=== PATIENT | male | born 1960 | race Caucasian/White ===

== ENCOUNTER 2019-05-23 20:46 | Inpatient (IN) | payer OTHER ==
[2019-05-23] MEDS ORDERED: NS 0.9% 1000 ML** 2,000 ML IV ONE (21:02)
[2019-05-23] MEDS ORDERED: Pantoprazole IV* 40 MG IV ONE (21:02)
[2019-05-23] MEDS ORDERED: Pantoprazole* 80 mg IN NS 80 MG/250 ML BAG IV ONE (21:02)
--- NOTE | 2019-05-23 21:04 | ED ---
Complex/Multi-Sys Presentation - HPI Summary HPI Summary: Patient is a 59 y/o M presenting to the ED via EMS for a chief complaint of nausea and vomiting that began on 04/21/19 around 12:00. The vomiting is described as coffee ground emesis and black, but the patient states the vomiting was not initially this color. Patient also admits abdominal bloating and SOB when coughing. Patient denies chest pain or fever. Patient rates his current pain as 7/10 in severity. Patient lives with friends who serve as his caregivers. Patient's friends move the patient from where he sleeps to the couch using a wheelchair where he sits and watches TV during the day. Patient takes blood thinners, but denies taking pain medications. Patient has a PMHx of appendectomy, a PMHx of DM, but denies a PMHx of ulcers. Patient denies tobacco use, but admits marijuana use. Patient drinks alcohol daily. Patient sees Dr. Lowery for neuropathy and ataxia. - History Of Current Complaint Hx Obtained From: Patient Onset/Duration: Sudden Onset, Still Present Timing: Intermittent, Lasting: Severity Currently: Moderate Severity Initially: Moderate Associated Signs And Symptoms: Positive: SOB, Cough, Nausea, Vomiting - Coffee ground and black, Other - Positive abdominal bloating. Negative: Chest Pain, Fever - Allergies/Home Medications Allergies/Adverse Reactions: Allergies Allergy/AdvReac Type Severity Reaction Status Date / Time No Known Allergies Allergy Verified 05/23/19 20:54 Home Medications: Home Medications Aspirin EC TAB* [Ecotrin EC Low Dose 81 MG*] 81 mg PO DAILY 05/23/19 [History Confirmed 05/23/19] Atenolol TAB* [Tenormin TAB* 25 MG] 25 mg PO DAILY 05/23/19 [History Confirmed 05/23/19] Escitalopram * [Lexapro 10 mg (NF)] 10 mg PO DAILY 05/23/19 [History Confirmed 05/23/19] Folic Acid TAB* [Folvite TAB*] 1 mg PO DAILY 05/23/19 [History Confirmed ] Lisinopril TAB* [Prinivil TAB*] 10 mg PO DAILY 05/23/19 [History Confirmed 05/23] Multivitamins/Minerals TAB* [Theragran/minerals TAB*] 1 tab PO DAILY 05/23/19 [ History Confirmed 05/23/19] Rosuvastatin (NF) [Crestor (NF)] 10 mg PO DAILY 05/23/19 [History Confirmed 05/31] Thiamine TAB* [Vitamin B-1 TAB*] 250 mg PO DAILY 05/23/19 [History Confirmed 05/31] Ubidecarenone [Co Q-10] 200 mg PO DAILY 05/23/19 [History Confirmed 05/23/19] clonazePAM TAB(*) [KlonoPIN TAB(*)] 0.5 mg PO TID PRN 05/23/19 [History Confirmed 05/23/19] PMH/Surg Hx/FS Hx/Imm Hx Previously Healthy: Yes Endocrine/Hematology History: Reports: Hx Diabetes Cardiovascular History: Reports: Hx Angina, Hx Hypercholesterolemia, Hx Hypertension Denies: Hx Coronary Artery Disease, Hx Pacemaker/ICD, Hx Valvular Heart Disease Respiratory History: Denies: Hx Asthma, Hx Chronic Obstructive Pulmonary Disease (COPD) History: Denies: Hx Renal Disease Sensory History: Reports: Hx Cataracts - BILATERAL, Hx Contacts or Glasses - GLASSES, Hx Hearing Aid Denies: Hx Legally Blind, Hx Deafness Opthamlomology History: Reports: Hx Cataracts - BILATERAL, Hx Contacts or Glasses - GLASSES Denies: Hx Legally Blind EENT History: Denies: Hx Deafness Psychiatric History: Reports: Hx Anxiety - ON DAILY MEDS, Hx Depression, Hx Panic Disorder - PANIC ATTACKS - Surgical History Surgical History: Yes Surgery Procedure, Year, and Place: 2 HEART STENTS 2008-[facility]. APPENDIX 1976. BILATERAL CATARACTS 05/2016 Hx Anesthesia Reactions: No Infectious Disease History: No Infectious Disease History: Denies: Hx Clostridium Difficile, Hx Hepatitis, Hx Human Immunodeficiency Virus (HIV), Hx of Known/Suspected MRSA, Hx Shingles, Hx Tuberculosis, Hx Known/ Suspected VRE, Hx Known/Suspected VRSA, History Other Infectious Disease, Traveled Outside the [place] in Last 30 Days - Family History Known Family History: Negative: Diabetes - Social History Occupation: Retired Lives: Dormitory/Roommates Alcohol Use: Daily Alcohol Amount: "Not this week" but usually daily Hx Substance Use: Yes Substance Use Type: Reports: Marijuana Substance Use Comment - Amount & Last Used: WILL TRY & NOT USE PREOP FEW DAYS Hx Tobacco Use: No Smoking Status (MU): Never Smoked Tobacco Have You Smoked in the Last Year: No Review of Systems Negative: Fever Negative: Chest Pain Positive: Shortness Of Breath, Cough Positive: Vomiting - Coffee ground and black, Nausea All Other Systems Reviewed And Are Negative: Yes Physical Exam - Summary Physical Exam Summary: Appearance: Well-appearing, lying in bed comfortably. Morbidly obese man who appears debilitated, no apparent distress Skin: Warm, dry, no obvious rash Eyes: sclera anicteric, no conjunctival pallor ENT: mucous membranes moist, pharynx appears normal Neck: Supple, nontender Respiratory: Clear to auscultation, no signs of respiratory distress Cardiovascular: Normal S1, S2. No murmurs. Normal distal pulses in tibial and radial bilaterally. Mild tachycardia with normal BP. Abdomen: Soft, normal active bowel sounds present. Mild upper abdominal tenderness without peritoneal signs. Musculoskeletal: Normal, Strength/ROM Intact Neurological: A&Ox3, awake and alert, mentation is normal, speech is fluent and appropriate Psychiatric: affect is normal, does not appear anxious or depressed Triage Information Reviewed: Yes Vital Signs On Initial Exam: Initial Vitals Temp Pulse Resp BP Pulse Ox 98.9 F 126 18 128/93 99 05/23/19 20:48 05/23/19 20:48 05/23/19 20:48 05/23/19 20:48 05/23/19 20:48 Vital Signs Reviewed: Yes Procedures - Sedation Patient Received Moderate/Deep Sedation with Procedure: No Diagnostics - Vital Signs Vital Signs Temp Pulse Resp BP Pulse Ox 05/23/19 20:48 98.9 F 126 18 128/93 99 - Laboratory Result Diagrams: 05/25/19 08:15 05/26/19 08:42 Lab Statement: Any lab studies that have been ordered have been reviewed, and results considered in the medical decision making process. - EKG 20:48 Cardiac Rate: Tachycardia - 122 BPM EKG Rhythm: Sinus Tachycardia ST Segment: Normal Ectopy: None Summary of EKG Findings: EKG at 20:48 shows 122 BPM with sinus tachycardia, no STEMI. P waves, QRS complex, and T waves are within normal limits, T waves and intervals are normal, no ischemic changes. This is a normal EKG. Reviewed and interpreted by ED physician. Complex Multi-Symp Course/Dx Course Of Treatment: Patient is a 59 y/o M presenting to the ED via EMS for a chief complaint of nausea and vomiting that began on 04/21/19 around 12:00. The vomiting is described as coffee ground emesis and black, but the patient states the vomiting was not initially this color. Patient also admits abdominal bloating and SOB when coughing. Patient denies chest pain or fever. Patient rates his current pain as 7/10 in severity. Patient lives with friends who serve as his caregivers. Patient's friends move the patient from where he sleeps to the couch using a wheelchair where he sits and watches TV during the day. Patient takes blood thinners, but denies taking pain medications. Patient has a PMHx of appendectomy, a PMHx of DM, but denies a PMHx of ulcers. Patient denies tobacco use, but admits marijuana use. Patient drinks alcohol daily. Patient sees Dr. Lowery for neuropathy and ataxia. On exam, morbidly obese man who appears debilitated, no apparent distress, mild tachycardia with normal BP. Mild upper abdominal tenderness without peritoneal signs. In the ED course, patient was given pantoprazole 80 mg IV, pantoprazole 40 mg IV, and fluids. EKG at 20:48 shows 122 BPM with sinus tachycardia, no STEMI. P waves, QRS complex, and T waves are within normal limits, T waves and intervals are normal , no ischemic changes. This is a normal EKG. Laboratory abnormal findings: WBC 12.2, RBC 3.31, Hgb 11.8, Hct 33, MCV 99, MCH 36, MPV 6.7, absolute neuts 9.7, absolute monos 1.0, INR 1.82, sodium 131, chloride 99, BUN 5, creatinine 0.65, BUN/Creatinine ratio 7.7, glucose 186, calcium 7.8, total bilirubin 1.40, AST 66 , alkaline phosphatase 142, total protein 5.5, albumin 2.5, albumin/globulin ratio 0.8. At 01:58, Dr. Irvin Del Rosario agrees to admit the patient to [facility] with a diagnosis of upper GI bleeding. Patient will be admitted to [facility] with a diagnosis of upper GI bleeding. - Diagnoses Provider Diagnoses: Upper GI bleeding - Physician Notifications Discussed Care Of Patient With: Irvin Del Rosario - At 01:58, Dr. Irvin Del Rosario agrees to admit the patient to [facility] with a diagnosis of upper GI bleeding. Time Discussed With Above Provider: 01:58 Instructed by Provider To: Admit As Inpatient Discharge ED - Sign-Out/Discharge Documenting (check all that apply): Patient Departure - Admit - Discharge Plan Condition: Stable Disposition: ADMITTED TO [facility] - Billing Disposition and Condition Condition: STABLE Disposition: Admitted to [facility] - Attestation Statements Document Initiated by Mulu: Yes Documenting Scribe: Ratna Ellison Provider For Whom Mulu is Documenting (Include Credential): Juan Carlos Camarena MD Scribe Attestation: Ratna Quiñones scribed for Juan Carlos Camarena MD on 05/27/19 at 0306. Scribe Documentation Reviewed: Yes Provider Attestation: The documentation as recorded by the Ratna ledezma accurately reflects the service I personally performed and the decisions made by Juan Carlos davis MD Status of Scribe Document: Viewed
[2019-05-23 23:07] LABS: ABS Lymphocytes 1.5 10^3/ul (1.0-4.8); ABS Neutrophils 9.7 10^3/ul (1.5-7.7); Hematocrit 33 % (42-52); Hemoglobin 11.8 g/dL (14.0-18.0); Lymphocyte % 12.2 %; Mean Corpuscular HGB Conc 36 g/dL (31-36); Mean Corpuscular Hemoglobin 36 pg (27-31); Mean Corpuscular Volume 99 fL (80-94); Mean Platelet Volume 6.7 fL (7.4-10.4); Platelet Count 193 10^3/uL (150-450); Red Blood Count 3.31 10^6 /uL (4.18-5.48); Red Cell Distribution Width 13 % (10-15); White Blood Count 12.2 10^3/uL (3.5-10.8)
[2019-05-23 23:15] LABS: Activated Partial Thrombo Time 37.2 seconds (26.0-38.0); INR 1.82 (0.82-1.09)
[2019-05-23 23:29] LABS: Albumin 2.5 g/dL (3.2-5.2); Albumin/Globulin Ratio 0.8 (1-3); BUN/Creatinine Ratio 7.7 (8-20); Calcium 7.8 mg/dL (8.6-10.3); EGFR African American 151.1 (>60); EGFR Non-African American 124.9 (>60); Potassium 3.9 mmol/L (3.5-5.0); Total Bilirubin 1.4 mg/dL (0.2-1.0); Total Protein 5.5 g/dL (6.4-8.9)
[2019-05-24] MEDS ORDERED: Octreotide Acetate* 500 MCG/ML 1 ML VIAL IV ONE (02:03)
[2019-05-24 02:25] LABS: Hematocrit 31 % (42-52); Hemoglobin 10.9 g/dL (14.0-18.0)
[2019-05-24] MEDS ORDERED: Octreotide Acetate* 100 MCG/ML 1 ML VIAL IV ONE (02:30)
[2019-05-24] MEDS ORDERED: clonazePAM TAB(*) 0.5 MG PO PRN (02:49)
[2019-05-24] MEDS ORDERED: LORazepam INJ* 2 MG/ML 1 ML VIAL IV PUSH PRN (02:54)
[2019-05-24] MEDS ORDERED: Lorazepam PYXIS KEY PRN (02:54)
[2019-05-24] MEDS ORDERED: cefTRIAXone(*) 1 GM in NS 0.9% 50 ML* 50 ML IVPB SCH (03:00)
[2019-05-24] MEDS ORDERED: Octreotide Acetate* 500 MCG in NS 0.9% 100 ML* 100 ML IV SCH (03:00)
[2019-05-24 04:21] LABS: Anion Gap 5 mmol/L (2-11); BUN/Creatinine Ratio 9.4 (8-20); Blood Urea Nitrogen 6 mg/dL (6-24); CO2 Carbon Dioxide 25 mmol/L (22-32); Calcium 7.7 mg/dL (8.6-10.3); Chloride 98 mmol/L (101-111); EGFR African American 153.8 (>60); EGFR Non-African American 127.1 (>60); Glucose 165 mg/dL (70-100); Sodium 128 mmol/L (135-145)
[2019-05-24 05:21] LABS: Total Bilirubin 1.4 mg/dL (0.2-1.0)
[2019-05-24] MEDS: cefTRIAXone(*) 1 GM in NS 0.9% 50 ML* 50 ML IVPB SCH ×2 (05:53→06:33)
[2019-05-24] MEDS: NS 0.9% 1000 ML** 1,000 ML IV SCH ×3 (05:53→18:04)
[2019-05-24 06:15] LABS: ABS Basophils 0.1 10^3/ul (0-0.2); ABS Eosinophils 0.1 10^3/ul (0-0.6); ABS Lymphocytes 2.3 10^3/ul (1.0-4.8); ABS Monocytes 1.3 10^3/ul (0-0.8); ABS Neutrophils 9.9 10^3/ul (1.5-7.7); Eosinophil % 0.4 %; Hematocrit 36 % (42-52); Hemoglobin 12.8 g/dL (14.0-18.0); Lymphocyte % 16.8 %; Mean Corpuscular HGB Conc 35 g/dL (31-36); Mean Corpuscular Hemoglobin 35 pg (27-31); Mean Corpuscular Volume 100 fL (80-94); Mean Platelet Volume 6.6 fL (7.4-10.4); Nucleated Red Blood Cells % 0.1; Platelet Count 184 10^3/uL (150-450); Red Blood Count 3.61 10^6 /uL (4.18-5.48); Red Cell Distribution Width 13 % (10-15); White Blood Count 13.6 10^3/uL (3.5-10.8)
--- NOTE | 2019-05-24 08:18 | HP ---
HISTORY AND PHYSICAL: DATE OF ADMISSION: 05/24/19 ADMITTING PROVIDER: Irvin Del Rosario MD PRIMARY CARE PROVIDER: Dr. Villegas OUTPATIENT NEUROLOGIST: Dr. Lowery OUTPATIENT DEBURRER: Dr. Robles. CHIEF COMPLAINT: Abdominal pain, bloating, and vomiting of black emesis x20. HISTORY OF PRESENT ILLNESS: Micky Donovan is a 59-year-old male with past medical history of longstanding alcoholism, [id number] diabetes mellitus, polyneuropathy, alcoholic fatty liver disease, hypertension, CAD with stented LAD in 2008. He was in his usual state of health until 2 days prior to admission, on 05/22/19, he developed what he initially says was "bilious " vomiting, later clarified that was it "dark, black" emesis. He vomited approximately 20 times. He had developed abdominal discomfort and "bloating." He thinks he has "gas he just cannot get out." He normally has loose stools and they have been unchanged - last was day prior to admission without any blood or melena. He has not been able to eat anything for a few days, given the constant vomiting. Abdominal pain has worsened to about 6 to 7/10 in the epigastric region. His last alcoholic drink was also 2 days prior to admission when he had 7 beers. He has been trying to cut back for several months. He has been alcoholic for all of his adult life and he used to have a 36 beers a day habit. He has had a colonoscopy about 10 years ago. He denies any chest pain. He states he is currently short of breath. He sleeps in a stand-up chair. Given his severe polyneuropathy, he does not walk and he is basically wheeled from this reclining chair to another chair where he watches TV all day. He has excoriations on both of his arms and attributes this to his "anxiety disorder" and this pruritis seems to have started after of this year. In the [facility] Emergency Room, initial workup included an elevated white count of 12.2, hemoglobin of 11.8, elevated INR of 1.82, T-bili of 1.40, AST of 66, and sodium of 131. He was referred to the hospitalist service for admission for suspected upper GI bleed. He was tachycardic to the mid 120s, blood pressure 120 /93, afebrile, satting well on room air. He got 2 L of normal saline, 40 mg of IV Protonix and then started on a Protonix drip. PAST MEDICAL HISTORY: Longstanding alcoholism, non-insulin dependent mellitus, CAD with LAD stent in 2008, hyperlipidemia, obesity, alcoholic fatty liver disease and diastolic dysfunction. MEDICATIONS: Include: 1. Lisinopril 10 mg daily. 2. Thiamine 250 mg p.o. daily. 3. MultiVites 1 tablet p.o. daily. 4. Metformin 500 mg p.o. q.a.m. 5. Lexapro 10 mg p.o. daily. 6. Aspirin 81 mg daily. 7. Rosuvastatin 10 mg daily. 8. Coenzyme Q10 20 mg p.o. daily. 9. Klonopin 0.5 mg p.o. t.i.d. p.r.n. 10. Folic acid 1 mg p.o. daily. 11. Atenolol 25 mg p.o. daily. ALLERGIES: No known drug allergies. FAMILY HISTORY: His mother of heart disease and CHF at age 86. He has 2 brothers and 1 sister, all with heart disease. SOCIAL HISTORY: The patient is a longstanding alcoholic, currently drinking about 8 beers a day, down from 36 beers per day habit. He has been alcoholic "most of his adult life". He is a former smoker. He occasionally smokes pot. Denies any other drug use. He is unemployed. He has 2 caregivers/roommates that live with him. REVIEW OF SYSTEMS: A complete 14-point review of systems is negative, except as per HPI. He does say he is chronically short of breath, at both rest and with exertion, but denies orthopnea, though it is hard to tell because his standing chair that he sleeps in does not go fully flat so it is hard to rule that out. PHYSICAL EXAMINATION GENERAL APPEARANCE: No acute distress. VITAL SIGNS: Temperature 98.9; pulse rate 126; respiratory rate between 11 and 28; satting between 89% and 100% on room air; blood pressure 128/93, low of 99/ 70. HEENT: Normocephalic, atraumatic. Pupils are equal, round, and reactive to light. Extraocular motions are intact. No scleral icterus. LUNGS: Anteriorly and at the posterior left lung saenz, clear to auscultation with no wheezing, rales, or rhonchi. CARDIOVASCULAR: Regular, tachycardic. No murmurs, rubs, or gallops. ABDOMEN: Soft, nontender, distended. No rebound or guarding. EXTREMITIES: Warm and well perfused. There is 2+ pitting edema in the right lower extremity, 1+ on the left. SKIN: Excoriations on his bilateral arms and some on his torso. NEURO: He has cranial nerves II through XII intact. Moving all extremities. No clear asterixis on exam. DIAGNOSTIC STUDIES/LAB DATA: White count 12.2, hemoglobin 11.8, hematocrit 33 , platelets 193. INR is 1.82. Sodium 131, potassium 3.9, chloride 99, carbon dioxide 23, BUN 5, creatinine 0.65, glucose 186. Total bili 1.4, AST 66, ALT 33 , alk phos 142. Albumin is 2.5. Lactic acid is 1.8. Hemoglobin and hematocrit on repeat are 10.9/31 and adequate. Imaging: None. EKG demonstrated sinus tachycardia. No ST elevations or depressions. There is poor R-wave progression. Heart rate is 122. QTc of 483. ASSESSMENT AND PLAN: Micky Donovan is a 59-year-old man with past medical history of longstanding alcoholism, alcoholic fatty liver disease based on ultrasound and elastograph earlier this year in January, polyneuropathy, non- insulin dependent diabetes mellitus, hypertension, hyperlipidemia, obesity, presenting with concern for coffee-ground emesis/upper gastrointestinal bleed. He is tachycardic, normotensive, anemic. He has gotten Protonix and has been starting on Protonix drip. Given his longstanding alcohol use, elevated INR, and some mild transaminitis with AST of 66, alk phos elevation, total bili 1.4, I suspect his alcoholic liver disease puts him at risk for esophageal varices. I am giving him an octreotide bolus and put him on octreotide drip and giving him prophylactic ceftriaxone 1 g q.24 hours in the setting of possible esophageal variceal blood. GI will need to be consulted in the morning or earlier depending on clinical course if he were to decompensate. I am going to put him on the telemetry medicine floor for now, but he does have the risk for acute decompensation. I am holding his home antihypertensives of lisinopril and atenolol and make him n.p.o. except for medications. Continue his thiamine , Crestor, Lexapro, folic acid. He is actually a bit of a poor historian in terms of times and dates. I am going to add on thiamine level. I am going to put him on a WAM protocol. Continue his p.r.n. Klonopin 0.5 mg p.o. t.i.d. p.r.n. Repeat H&H or CBC every 6 hours. I am also adding on an ammonia level given his liver disease. I am going to get a repeat liver ultrasound and also help evaluate for any ascites or worsened evidence of cirrhosis. I will request the lab to help calculate a Maddrey's Discriminant function to evaluate for alcoholic hepatitis given his markedly elevated INR (no comparison since 2010 when it was wnl). We will use SCDs for DVT prophylaxis. Add BNP. He did have an echocardiogram on 02/13/19, which showed preserved ejection fraction of 60% to 65% with grade 1 diastolic dysfunction. He is a DNR/DNI. He wants his medical surrogate to be his friends/caregivers, Singh White and Wilton Alatorre. He states we have a DNR on file here already. [id number]/[facility] #: [id number] TIFFANY
--- NOTE | 2019-05-24 08:51 | PN ---
Subjective - Subjective Reason for Note: Progress Note History: I obtained the history of Micky Montgomeryley's presentation from the patient and from Dr. Irvin Del Rosario's admitting history and physical. He is a longstanding alcoholic who has refused to reduce his drinking, but who states he has actually reduced his intake. He is known to have cirrhosis of the liver. 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 Gaurav Lowery as an outpatient. He also has a history of coronary artery disease and is post stenting, this has been stable for many years. He presents with coffee-ground emesis. This morning he has no abdominal pain, nausea or vomiting. He is anxious. He denies chest pain, dyspnea, palpitations. He has some ankle edema. He has no cough/sputum. He has had no seizures or headache. Active Problems: Active Problems Alcohol withdrawal (Acute) F10.239 Alcoholic cirrhosis of liver (Acute) K70.30 Ascites (Acute) R18.8 Hematemesis (Acute) K92.0 Hyperammonemia (Acute) E72.20 Obesity (Acute) E66.9 Alcoholic (Chronic) F10.20 Anxiety disorder (Chronic) F41.9 Ataxia (Chronic) R27.0 Coronary artery disease (Chronic) I25.10 Depression (Chronic) F32.9 Type 2 diabetes mellitus (Chronic) Current Medications: Current Medications Atorvastatin Calcium (Lipitor*) 20 mg PO DAILY [facility]; Protocol Clonazepam (Klonopin Tab(*)) 0.5 mg PO TID PRN PRN Reason: ANXIETY Escitalopram Oxalate (Lexapro *) 10 mg PO DAILY [facility] Folic Acid (Folvite Tab*) 1 mg PO DAILY [facility] Octreotide Acetate 500 mcg/ (Sodium Chloride) 101 mls @ 10.1 mls/hr IV PER RATE [facility] Last Admin: 05/24/19 03:06 Dose: 10.1 mls/hr Sodium Chloride (Ns 0.9% 1000 Ml) 1,000 mls @ 150 mls/hr IV PER RATE [facility] Last Admin: 05/24/19 06:33 Dose: 150 mls/hr Ceftriaxone Sodium 1 gm/ (Sodium Chloride) 50 mls @ 100 mls/hr IVPB Q24H [facility] Last Admin: 05/24/19 06:33 Dose: 100 mls/hr Lactulose (Lactulose*) 30 ml PO TID [facility] Last Admin: 05/24/19 06:43 Dose: 30 ml Lorazepam (Ativan Inj*) 0 mg IV PUSH Q6H PRN; Protocol PRN Reason: AGITATION Miscellaneous (Ativan Pyxis Noonan) 1 ea N/A .ATIVAN IV NOONAN PRN PRN Reason: PYXIS NOONAN Multivitamins/Minerals (Theragran/Minerals Tab*) 1 tab PO DAILY [facility] Thiamine HCl (Vitamin B-1 Tab*) 250 mg PO DAILY [facility] Home Medications: Home Medications Medication Instructions Recorded Confirmed Type metFORMIN* [Glucophage*] 500 mg PO QAM 03/11/13 05/23/19 History Aspirin EC TAB* [Ecotrin EC Low 81 mg PO DAILY 05/23/19 05/23/19 History Dose 81 MG*] Atenolol TAB* [Tenormin TAB* 25 MG] 25 mg PO DAILY 05/23/19 05/23/19 History Escitalopram * [Lexapro 10 mg (NF)] 10 mg PO DAILY 05/23/19 05/23/19 History Folic Acid TAB* [Folvite TAB*] 1 mg PO DAILY 05/23/19 05/23/19 History Lisinopril TAB* [Prinivil TAB*] 10 mg PO DAILY 05/23/19 05/23/19 History Multivitamins/Minerals TAB* 1 tab PO DAILY 05/23/19 05/23/19 History [Theragran/minerals TAB*] Rosuvastatin (NF) [Crestor (NF)] 10 mg PO DAILY 05/23/19 05/23/19 History Thiamine TAB* [Vitamin B-1 TAB*] 250 mg PO DAILY 05/23/19 05/23/19 History Ubidecarenone [Co Q-10] 200 mg PO DAILY 05/23/19 05/23/19 History clonazePAM TAB(*) [KlonoPIN TAB(*)] 0.5 mg PO TID PRN 05/23/19 05/23/19 History Allergies: Allergies Allergy/AdvReac Type Severity Reaction Status Date / Time No Known Allergies Allergy Verified 05/23/19 20:54 Objective - Vital Signs Vital Signs: Vital Signs 05/23/19 05/23/19 05/23/19 20:48 20:56 20:58 Temperature 98.9 F Pulse Rate 126 125 121 Respiratory 18 11 25 Rate Blood Pressure 128/93 128/93 (mmHg) O2 Sat by Pulse 99 99 97 Oximetry 05/23/19 05/23/19 05/23/19 21:02 21:28 21:57 Temperature Pulse Rate 123 117 127 Respiratory 16 28 22 Rate Blood Pressure 107/83 118/87 (mmHg) O2 Sat by Pulse 98 98 90 Oximetry 05/23/19 05/23/19 05/23/19 22:00 22:28 22:58 Temperature Pulse Rate 124 123 128 Respiratory 28 24 23 Rate Blood Pressure 125/90 122/90 (mmHg) O2 Sat by Pulse 100 93 96 Oximetry 05/23/19 05/23/19 05/23/19 23:00 23:28 23:58 Temperature Pulse Rate 130 129 125 Respiratory 24 21 23 Rate Blood Pressure 119/79 122/78 (mmHg) O2 Sat by Pulse 93 93 92 Oximetry 05/23/19 05/24/19 05/24/19 23:59 00:00 00:28 Temperature Pulse Rate 124 119 124 Respiratory 22 25 20 Rate Blood Pressure 118/75 (mmHg) O2 Sat by Pulse 92 90 96 Oximetry 05/24/19 05/24/19 05/24/19 00:58 01:00 01:28 Temperature Pulse Rate 129 128 126 Respiratory 19 17 22 Rate Blood Pressure 99/70 112/81 (mmHg) O2 Sat by Pulse 89 94 91 Oximetry 05/24/19 05/24/19 05/24/19 01:58 02:00 03:00 Temperature Pulse Rate 118 112 119 Respiratory 24 21 19 Rate Blood Pressure 119/81 (mmHg) O2 Sat by Pulse 93 92 90 Oximetry 05/24/19 05/24/19 05/24/19 03:11 03:24 03:28 Temperature 98.9 F Pulse Rate 113 119 121 Respiratory 21 19 19 Rate Blood Pressure 125/86 125/86 117/83 (mmHg) O2 Sat by Pulse 95 90 91 Oximetry 05/24/19 05/24/19 05/24/19 04:00 04:28 04:50 Temperature 98.9 F 97.8 F Pulse Rate 119 118 Respiratory 20 19 18 Rate Blood Pressure 125/86 131/78 (mmHg) O2 Sat by Pulse 90 99 Oximetry 05/24/19 05/24/19 07:40 07:56 Temperature 97.9 F Pulse Rate 119 Respiratory 24 24 Rate Blood Pressure 123/70 (mmHg) O2 Sat by Pulse Oximetry - Intake and Output Intake and Output: Intake & Output 05/21/19 05/22/19 05/23/19 05/24/19 11:59 11:59 11:59 11:59 Intake Total 1999 Balance 1999 Weight 275 lb 11.2 oz Intake: IV Fluids 1999 Oral 0 Other: # Bowel Movements 0 # Voids 0 ADLs: Meal Record Start: 05/24/19 03: 35 Freq: DAILY@0900,1400,1800 Status: Active Protocol: Created 05/24/19 03:35 System (Rec: 05/24/19 03:35 System [id number]) Intake and Output Start: 05/23/19 20: 58 Freq: Status: Active Protocol: Created 05/23/19 20:58 System (Rec: 05/23/19 20:58 System [id number]) Intake and Output Start: 05/24/19 03: 35 Freq: DAILY@0600,1400,2200 Status: Active Protocol: Created 05/24/19 03:35 System (Rec: 05/24/19 03:35 System [id number]) Document 05/24/19 05:46 [id number] (Rec: 05/24/19 05:46 [id number]) - Physical Exam General Physical Exam Comment: He has a mild liver flap and has some tremor. He is warm and well perfused. Foot examination - some escoriatioins. No ulcers , callouses or infections. Pedal pulses present General: No Cyanosis, No Anemia, No Jaundice, No Clubbing Endocrine: Yes Central Obesity, No Acromegaly, No Vitiligo, No Flushing, No Acanthosis nigricans, No Violaceious striae, No Trell Syndrome, No Buccal pigmenatation, No Blanc Crease Pigmentation Lungs and Chest: Yes: Chest Expansion Full, Chest Expansion Symetrica, Percussion Note Resonant, Vessicular Breath Sounds. No: Crackles, Wheezes Heart Rate and Rhythm: Tachycardia Additional Cardiovascular: Yes: Normal Heart Sounds, Pedal Edema. No: Heart Murmur Abdominal Exam: Yes: Distention, Soft, Abdominal Tenderness, Bowel Sounds Present. No: Rigidity, Abdominal Mass, Hepatomegaly, Splenomegaly, Guarding, Rebound Tenderness - Extremities Cranial Nerves II-XII Intact: Yes Limbs: Normal Power, Normal Tone, Normal Coordination - finger nose normal. - Neuro Orientation: A/O x3 Psychiatric: Anxious Speech: Normal Results - Results Lab Results: Laboratory Results - last 24 hr 05/23/19 05/23/19 05/23/19 22:22 22:22 22:23 WBC 12.2 H RBC 3.31 L Hgb 11.8 L Hct 33 L MCV 99 H MCH 36 H MCHC 36 RDW 13 Plt Count 193 MPV 6.7 L Neut % (Auto) 79.4 Lymph % (Auto) 12.2 [place] % (Auto) 8.2 Eos % (Auto) 0.0 Baso % (Auto) 0.2 Absolute Neuts (auto) 9.7 H Absolute Lymphs (auto) 1.5 Absolute Monos (auto) 1.0 H Absolute Eos (auto) 0.0 Absolute Basos (auto) 0.0 Absolute Nucleated RBC 0.0 Nucleated RBC % 0.0 INR (Anticoag Therapy) 1.82 H APTT 37.2 Sodium Potassium Chloride Carbon Dioxide Anion Gap BUN Creatinine Est GFR ( Amer) Est GFR (Non-Af Amer) BUN/Creatinine Ratio Glucose Lactic Acid Calcium Total Bilirubin 1.40 H AST ALT Alkaline Phosphatase Ammonia B-Natriuretic Peptide Total Protein Albumin Globulin Albumin/Globulin Ratio Hepatitis Interpret 41.88 Blood Type B Negative Antibody Screen Negative 05/23/19 05/24/19 05/24/19 22:23 02:14 02:14 WBC RBC Hgb 10.9 L Hct 31 L MCV MCH MCHC RDW Plt Count MPV Neut % (Auto) Lymph % (Auto) [place] % (Auto) Eos % (Auto) Baso % (Auto) Absolute Neuts (auto) Absolute Lymphs (auto) Absolute Monos (auto) Absolute Eos (auto) Absolute Basos (auto) Absolute Nucleated RBC Nucleated RBC % INR (Anticoag Therapy) APTT Sodium 131 L Potassium 3.9 Chloride 99 L Carbon Dioxide 23 Anion Gap 9 BUN 5 L Creatinine 0.65 L Est GFR ( Amer) 151.1 Est GFR (Non-Af Amer) 124.9 BUN/Creatinine Ratio 7.7 L Glucose 186 H Lactic Acid 1.8 Calcium 7.8 L Total Bilirubin 1.40 H AST 66 H ALT 33 Alkaline Phosphatase 142 H Ammonia B-Natriuretic Peptide Total Protein 5.5 L Albumin 2.5 L Globulin 3.0 Albumin/Globulin Ratio 0.8 L Hepatitis Interpret Blood Type Antibody Screen 05/24/19 05/24/19 05/24/19 02:14 03:45 03:45 WBC RBC Hgb Hct MCV MCH MCHC RDW Plt Count MPV Neut % (Auto) Lymph % (Auto) [place] % (Auto) Eos % (Auto) Baso % (Auto) Absolute Neuts (auto) Absolute Lymphs (auto) Absolute Monos (auto) Absolute Eos (auto) Absolute Basos (auto) Absolute Nucleated RBC Nucleated RBC % INR (Anticoag Therapy) APTT Sodium 128 L Potassium TNP Chloride 98 L Carbon Dioxide 25 Anion Gap 5 BUN 6 Creatinine 0.64 L Est GFR ( Amer) 153.8 Est GFR (Non-Af Amer) 127.1 BUN/Creatinine Ratio 9.4 Glucose 165 H Lactic Acid Calcium 7.7 L Total Bilirubin AST ALT Alkaline Phosphatase Ammonia 118 H B-Natriuretic Peptide 63 Total Protein Albumin Globulin Albumin/Globulin Ratio Hepatitis Interpret Blood Type Antibody Screen 05/24/19 05/24/19 05:56 05:56 WBC 13.6 H RBC 3.61 L Hgb 12.8 L Hct 36 L MCV 100 H MCH 35 H MCHC 35 RDW 13 Plt Count 184 MPV 6.6 L Neut % (Auto) 72.8 Lymph % (Auto) 16.8 [place] % (Auto) 9.3 Eos % (Auto) 0.4 Baso % (Auto) 0.7 Absolute Neuts (auto) 9.9 H Absolute Lymphs (auto) 2.3 Absolute Monos (auto) 1.3 H Absolute Eos (auto) 0.1 Absolute Basos (auto) 0.1 Absolute Nucleated RBC 0.0 Nucleated RBC % 0.1 INR (Anticoag Therapy) APTT Sodium Potassium 4.3 Chloride Carbon Dioxide Anion Gap BUN Creatinine Est GFR ( Amer) Est GFR (Non-Af Amer) BUN/Creatinine Ratio Glucose Lactic Acid Calcium Total Bilirubin AST ALT Alkaline Phosphatase Ammonia B-Natriuretic Peptide Total Protein Albumin Globulin Albumin/Globulin Ratio Hepatitis Interpret Blood Type Antibody Screen Assessment - Problem List Assessment: Patient Problems Alcohol withdrawal (Acute) Alcoholic cirrhosis of liver (Acute) Ascites (Acute) Hematemesis (Acute) Hyperammonemia (Acute) Obesity (Acute) Alcoholic (Chronic) Anxiety disorder (Chronic) Ataxia (Chronic) Coronary artery disease (Chronic) Depression (Chronic) Type 2 diabetes mellitus (Chronic) Plan: x Hematemesis (Acute)Alcoholic cirrhosis of liver (Acute)Ascites (Acute) Hyperammonemia (Acute) Alcoholic cirrhosis of liver (Acute)He presents with hematemesis of coffee ground variety. He has portal hypertension and may have varices. I watched his abdo US and this confirms ascites. He has mild encephalopathy with a hepatic flap and also hyperammonemia. I have confirmed that he is going to have a GI consultation today. I will leave the ongoing management of possible esophageal varices, versus gastritis vs ulcer hemorrhage to that team and maintain his current medication. He will likely to require lactulose and a liver failure diet. Acute Alcohol withdrawal (Acute) He is on a [place] protocol. He is not committing to alcohol cessation, but states he is cutting down Comorbidities: Type 2 diabetes mellitus (Chronic) - he needs to stop metformin due to liver failure and risk of lactic acidosis Alcoholic (Chronic) He is not inclined to stop alcohol Anxiety disorder (Chronic) Depression (Chronic) I offered him a psychiatry consult - he declined Ataxia (Chronic) He is not able to walk independently due to this alcoholic complication Secondary diagnoses: Obesity (Acute) Coronary artery disease (Chronic) Obesity (Acute) I discussed the above with the patient. I told him unequivocally to stop alcohol permanently, he didn't sound convinced. I also told him that he has a poor prognosis if he persists and explained alcohol cirrhosis and portal hypertension. He agrees to the acute medical management. He wishes to be DNR and DNI - he has stated this to me previously as well. He has signed a MOL[facility] form.
[2019-05-24] MEDS ORDERED: Atenolol TAB* 25 MG PO SCH (09:00)
[2019-05-24] MEDS: Multivitamins/Minerals TAB PO SCH (09:12)
[2019-05-24] MEDS: Escitalopram * 10 MG TAB PO SCH (09:12)
[2019-05-24] MEDS ORDERED: Dextrose 50% VIAL 50 ml IV PUSH PRN (09:15)
[2019-05-24] MEDS: Thiamine TAB* 100 MG TAB PO SCH (09:15)
[2019-05-24] MEDS: Folic Acid TAB* 1 MG PO SCH (09:16)
[2019-05-24] MEDS: Atorvastatin* 20 MG TAB PO SCH (09:16)
[2019-05-24] MEDS ORDERED: Midazolam* 1 MG/ML 10 ML VIAL (10 MG) ONE (10:22)
[2019-05-24] MEDS ORDERED: fentaNYL* 50 MCG/ML 2 ML VIAL (100 MCG VIAL) ONE (10:22)
[2019-05-24 13:53] LABS: Hematocrit 36 % (42-52)
[2019-05-24] MEDS: Insulin LISPRO* 1 UNITS UNIT SUBCUT SCH ×2 (14:00→18:15)
--- NOTE | 2019-05-24 15:51 | CONSULT ---
Subjective Date of Service: 05/24/19 Interval History: Mr. Donovan is a 59 yo male with PMH significant for alcoholism, cirrhosis, alcoholic brain disorder, DM2, polyneuropathy, alcoholic fatty liver disease, HTN, CAD s/p LAD stenting, HLD, diastolic dysfunction, and obesity; who presented to the hospital with complaints of ABD pain, bloating, and black emesis. He was admitted to the hospital for upper GI bleed. He presented to the hospital with a small pressure ulcer to the right buttock. Unclear how long this has been present. Patient seen and examined at bedside. Family History: Unchanged from Admission Social History: Unchanged from Admission Past Medical History: Unchanged from Admission Review of Systems - Measurements Intake and Output: Intake and Output Last 24 Hours 05/22/19 05/23/19 05/24/19 05/25/19 06:59 06:59 06:59 06:59 Intake Total 1999 689 Output Total 300 Balance 1999 389 Weight 275 lb 11.2 oz Intake: IV Fluids 1999 616 NS 616 Medicated IV 73 OCTREATIDE 73 Oral 0 Output: [place] 300 Other: # Bowel Movements 0 # Voids 0 - Review of Systems General Comments: Limited ROS, as Pt has just returned from a procedure and is drowsy. Constitutional Symptoms: Negative: Fever, Other - Chills Endocrinology: Positive: Obesity, Diabetes Mellitus Objective Active Medications: Atorvastatin Calcium (Lipitor*) 20 mg PO DAILY [facility]; Protocol Clonazepam (Klonopin Tab(*)) 0.5 mg PO TID PRN Reason: ANXIETY Dextrose (Dextrose 50% Vial 50 Ml*) 25 ml IV PUSH .FOR FS < 60 - SS PRN Reason : FS < 60 Escitalopram Oxalate (Lexapro *) 10 mg PO DAILY [facility] Folic Acid (Folvite Tab*) 1 mg PO DAILY [facility] Octreotide Acetate 500 mcg/ (Sodium Chloride) 101 mls @ 10.1 mls/hr IV PER RATE [facility] Sodium Chloride (Ns 0.9% 1000 Ml) 1,000 mls @ 150 mls/hr IV PER RATE [facility] Ceftriaxone Sodium 1 gm/ (Sodium Chloride) 50 mls @ 100 mls/hr IVPB Q24H [facility] Insulin Human Lispro (Humalog*) 1 units SUBCUT Q6HR [facility]; Protocol Lactulose (Lactulose*) 30 ml PO TID [facility] Lorazepam (Ativan Inj*) 0 mg IV PUSH Q6H PRN; Protocol Reason: AGITATION Miscellaneous (Ativan Pyxis Noonan) 1 ea N/A .ATIVAN IV NOONAN PRN Reason: PYXIS NOONAN Multivitamins/Minerals (Theragran/Minerals Tab*) 1 tab PO DAILY [facility] Thiamine HCl (Vitamin B-1 Tab*) 250 mg PO DAILY [facility] Vital Signs 05/24/19 05/24/19 10:10 14:00 Temperature 98.6 F Pulse Rate 115 Respiratory 20 20 Rate Blood Pressure 106/72 (mmHg) O2 Sat by Pulse 98 Oximetry Oxygen Devices in Use Now: None Appearance: NAD, laying in bed Ears/Nose/Mouth/Throat: Mucous Membranes Moist Respiratory: Symmetrical Chest Expansion and Respiratory Effort Skin: - - See skin note below Neurological: - - Drowsy, unable to determine orientation at this time Result Diagrams: 05/24/19 13:45 05/24/19 05:56 Additional Lab and Data: Laboratory Tests 05/23/19 05/24/19 05/24/19 22:23 02:14 03:45 WBC Hgb Hct Plt Count Sodium 128 L Potassium Chloride 98 L Carbon Dioxide 25 BUN 6 Creatinine 0.64 L Glucose 165 H Hemoglobin A1c 5.4 Total Protein 5.5 L Albumin 2.5 L 05/24/19 05/24/19 05:56 05:56 WBC 13.6 H Hgb 12.8 L Hct 36 L Plt Count 184 Sodium Potassium 4.3 Chloride Carbon Dioxide BUN Creatinine Glucose Hemoglobin A1c Total Protein Albumin Skin Deviation Note - Skin Deviation Findings Buttocks - The right buttock with a small open area, measures 0.6 cm x 0.5 cm x 0.1 cm. The wound base is red granulation tissue and a small amount of adherent yellow slough. The surrounding skin is intact. There is no drainage. Wound Problem/Plan Assessment: Mr. Donovan is a 59 yo male with PMH significant for alcoholism, cirrhosis, alcoholic brain disorder, DM2, polyneuropathy, alcoholic fatty liver disease, HTN, CAD s/p LAD stenting, HLD, diastolic dysfunction, and obesity; who presented to the hospital with complaints of ABD pain, bloating, and black emesis. He was admitted to the hospital for upper GI bleed. He presented to the hospital with a small pressure ulcer to the right buttock. Unclear how long this has been present. 1. Right buttock pressure injury, stage 2. Unclear how long with has been present. There is also associated mild dermatitis to the buttocks. Recommend washing the area with soap and water. Apply barrier cream as needed. Frequent turning and repositioning . Will add a prealbumin on to the last labs to evaluate nutritional status. 2. DM2. HgA1C during this hospitalization 5.4. Maintain good glycemic control to allow for wound healing. 3. Diet. NPO. 4. Code Status. DNR. 5. Disposition. Inpatient, disposition per primary medicine team. TIME SPENT: Time for this wound consultation was 20 minutes and 10 minutes was spent with the patient at bedside assessing, measuring, and photographing the wounds. Is Patient a Wound Clinic Patient: No Attending: Vanessa Varma
--- NOTE | 2019-05-24 16:03 | PRO ---
DATE: 05/24/19 - ROOM #402 REFERRING PHYSICIAN: Dr. Gumaro Villegas. * PROCEDURE: Upper gastrointestinal endoscopy and brushing mid esophagus for cytology and viral culture. INDICATION: This 59-year-old diabetic with neuropathy and chronic alcoholic, drinking beer in multiple six packs per day although tapering in recent months, developed hematemesis about 2 days ago. He is bedbound and nonambulatory from neuropathy. He does not take any gastrointestinal remedies at home. He is on Lexapro 10, Klonopin tablets p.r.n., aspirin 81 and Glucophage and atenolol, lisinopril, and also a multivitamin. He has never had upper endoscopy before. His appetite has been diminishing recently. Informed consent was obtained. His DNR order was modified for the procedure. ENDOSCOPIST: Dr. Mane. MEDICATIONS: Midazolam 12, fentanyl 125. FINDINGS: He is a chronically ill-appearing man, in bed, morbidly obese. He was positioned left side down and moderate sedation induced with sequential doses of medication. He tolerated the exam well. EGD: Larynx - normal mucosa and narrow with limited views showing no gross disease. Esophagus - easily entered and there is stippled white exudative pattern, polka dot becoming more intense and then confluent white exudate by about 27 cm. There are deeper linear rake-like deep erosions and then some necrotic yellow to brown splotches in the distal esophagus from about 36 to 39. There is a slight hiatal hernia. There is no stricture and no focal ulcer. There is no active bleeding or clot. Stomach - mild granular erythema in the gastric body and fundus suggestive of portal hypertensive gastropathy. With an INR of 1.8, no biopsies were taken. The rugal pattern was normal. The distal body and antrum is normal. Duodenum - the pylorus, bulb, and second through fourth portions are normal. During withdrawal, brushing for viral culture was taken in the esophagus for cytology. Again, no biopsies were taken. IMPRESSION: Diffuse esophagitis - suspect a combination pathophysiology of reflux and caustic effect with a question of fungus and viral effect being raised. Octreotide can be discontinued. Empiric antifungal and antipeptic treatment indicated. HIV testing was negative 4 years ago. [id number]/[facility] #: [id number] [facility]
[2019-05-24 17:28] LABS: Hematocrit 32 % (42-52); Hemoglobin 11.3 g/dL (14.0-18.0)
[2019-05-24] MEDS: Octreotide Acetate* 500 MCG in NS 0.9% 100 ML* 100 ML IV SCH (23:53)
[2019-05-25] MEDS: Insulin LISPRO* 1 UNITS UNIT SUBCUT SCH ×5 (00:21→19:48)
[2019-05-25 01:18] LABS: Hematocrit 32 % (42-52); Hemoglobin 11.1 g/dL (14.0-18.0)
[2019-05-25] MEDS: NS 0.9% 1000 ML** 1,000 ML IV SCH (03:33)
[2019-05-25] MEDS: cefTRIAXone(*) 1 GM in NS 0.9% 50 ML* 50 ML IVPB SCH (07:53)
[2019-05-25] MEDS ORDERED: Fluconazole 150 MG TAB PO ONE (08:27)
[2019-05-25 08:39] LABS: ABS Basophils 0.1 10^3/ul (0-0.2); ABS Eosinophils 0.5 10^3/ul (0-0.6); ABS Lymphocytes 1.3 10^3/ul (1.0-4.8); ABS Monocytes 0.4 10^3/ul (0-0.8); Eosinophil % 5.6 %; Hematocrit 32 % (42-52); Hemoglobin 11.1 g/dL (14.0-18.0); Lymphocyte % 15.3 %; Mean Corpuscular HGB Conc 35 g/dL (31-36); Mean Corpuscular Hemoglobin 35 pg (27-31); Mean Corpuscular Volume 101 fL (80-94); Mean Platelet Volume 6.3 fL (7.4-10.4); Platelet Count 165 10^3/uL (150-450); Red Blood Count 3.15 10^6 /uL (4.18-5.48); Red Cell Distribution Width 13 % (10-15); White Blood Count 8.2 10^3/uL (3.5-10.8)
--- NOTE | 2019-05-25 08:39 | PN ---
Subjective - Subjective Reason for Note: Progress Note History: He tolerated the EGD yesterday. He remains thirsty and asking for iced water - though is not ready to eat. Dr. Shyam Mane called me and told me about the extensive gastritis, possible candidiasis - he recommended anti-candidal treatment. He has had no seizures or signs of increased agitation from alcohol withdrawl. He denies any pain. I reviewed the wound care note from Carli Powell NP. She also included a clinical photograph. This is a small stage 2 ulcer on right buttock. Active Problems: Active Problems Alcohol withdrawal (Acute) F10.239 Alcoholic cirrhosis of liver (Acute) K70.30 Ascites (Acute) R18.8 Gastritis, alcoholic (Acute) K29.20 Gastrointestinal candidiasis (Acute) B37.89 Hematemesis (Acute) K92.0 Hyperammonemia (Acute) E72.20 Malnutrition (Acute) E46 Obesity (Acute) E66.9 Portal hypertension (Acute) K76.6 Pressure injury of right buttock, stage 2 (Acute) L89.312 Alcoholic (Chronic) F10.20 Anxiety disorder (Chronic) F41.9 Ataxia (Chronic) R27.0 Coronary artery disease (Chronic) I25.10 Depression (Chronic) F32.9 Type 2 diabetes mellitus (Chronic) Current Medications: Current Medications Atorvastatin Calcium (Lipitor*) 20 mg PO DAILY [facility]; Protocol Last Admin: 05/24/19 09:16 Dose: 20 mg Clonazepam (Klonopin Tab(*)) 0.5 mg PO TID PRN PRN Reason: ANXIETY Dextrose (Dextrose 50% Vial 50 Ml*) 25 ml IV PUSH .FOR FS < 60 - SS PRN PRN Reason: FS < 60 Escitalopram Oxalate (Lexapro *) 10 mg PO DAILY [facility] Last Admin: 05/24/19 09:12 Dose: 10 mg Fluconazole (Diflucan 150 Mg Tab*) 300 mg PO ONCE ONE Stop: 05/25/19 08:28 Fluconazole (Diflucan 150 Mg Tab*) 300 mg PO DAILY [facility] Stop: 05/31/19 09:01 Folic Acid (Folvite Tab*) 1 mg PO DAILY [facility] Last Admin: 05/24/19 09:16 Dose: 1 mg Sodium Chloride (Ns 0.9% 1000 Ml) 1,000 mls @ 150 mls/hr IV PER RATE [facility] Last Admin: 05/25/19 03:33 Dose: 150 mls/hr Ceftriaxone Sodium 1 gm/ (Sodium Chloride) 50 mls @ 100 mls/hr IVPB Q24H [facility] Last Admin: 05/25/19 07:53 Dose: 100 mls/hr Octreotide Acetate 500 mcg/ (Sodium Chloride) 101 mls @ 10.1 mls/hr IV Q10H [facility] Last Admin: 05/24/19 23:53 Dose: 10.1 mls/hr Insulin Human Lispro (Humalog*) 0 units SUBCUT Q6HR [facility]; Protocol Last Admin: 05/25/19 06:42 Dose: 2 units Lactulose (Lactulose*) 30 ml PO TID [facility] Last Admin: 05/24/19 19:57 Dose: 30 ml Lorazepam (Ativan Inj*) 0 mg IV PUSH Q6H PRN; Protocol PRN Reason: AGITATION Miscellaneous (Ativan Pyxis Noonan) 1 ea N/A .ATIVAN IV NOONAN PRN PRN Reason: PYXIS NOONAN Multivitamins/Minerals (Theragran/Minerals Tab*) 1 tab PO DAILY [facility] Last Admin: 05/24/19 09:12 Dose: 1 tab Thiamine HCl (Vitamin B-1 Tab*) 250 mg PO DAILY [facility] Last Admin: 05/24/19 09:15 Dose: 250 mg - Review of Systems Constitutional Symptoms: Yes: Fatigue, No: Fever Pulmonary: Negative: Sputum, Respiratory Distress, Shortness of Breath Cardiology: Positive: Swelling of Ankles Negative: Chest Pain, Palpitations Gastroenterology: Negative: Abdominal Pain, Nausea, Vomiting Home Medications: Home Medications Medication Instructions Recorded Confirmed Type metFORMIN* [Glucophage*] 500 mg PO [facility] 03/11/13 05/23/19 History Aspirin EC TAB* [Ecotrin EC Low 81 mg PO DAILY 05/23/19 05/23/19 History Dose 81 MG*] Atenolol TAB* [Tenormin TAB* 25 MG] 25 mg PO DAILY 05/23/19 05/23/19 History Escitalopram * [Lexapro 10 mg (NF)] 10 mg PO DAILY 05/23/19 05/23/19 History Folic Acid TAB* [Folvite TAB*] 1 mg PO DAILY 05/23/19 05/23/19 History Lisinopril TAB* [Prinivil TAB*] 10 mg PO DAILY 05/23/19 05/23/19 History Multivitamins/Minerals TAB* 1 tab PO DAILY 05/23/19 05/23/19 History [Theragran/minerals TAB*] Rosuvastatin (NF) [Crestor (NF)] 10 mg PO DAILY 05/23/19 05/23/19 History Thiamine TAB* [Vitamin B-1 TAB*] 250 mg PO DAILY 05/23/19 05/23/19 History Ubidecarenone [Co Q-10] 200 mg PO DAILY 05/23/19 05/23/19 History clonazePAM TAB(*) [KlonoPIN TAB(*)] 0.5 mg PO TID PRN 05/23/19 05/23/19 History Allergies: Allergies Allergy/AdvReac Type Severity Reaction Status Date / Time No Known Allergies Allergy Verified 05/23/19 20:54 Objective - Vital Signs Vital Signs: Vital Signs 05/24/19 05/24/19 05/24/19 10:00 10:10 14:00 Temperature 98.6 F Pulse Rate 115 Respiratory 20 20 20 Rate Blood Pressure 106/72 (mmHg) O2 Sat by Pulse 98 Oximetry 05/24/19 05/24/19 05/24/19 20:00 20:09 21:51 Temperature 97.6 F 99.2 F Pulse Rate 104 101 Respiratory 20 20 20 Rate Blood Pressure 131/84 132/90 (mmHg) O2 Sat by Pulse 97 94 Oximetry 05/24/19 05/25/19 05/25/19 23:54 02:01 04:13 Temperature 98.3 F 97.6 F 99.7 F Pulse Rate 98 117 113 Respiratory 20 18 18 Rate Blood Pressure 114/60 95/64 120/79 (mmHg) O2 Sat by Pulse 95 94 95 Oximetry 05/25/19 06:02 Temperature 99.6 F Pulse Rate 115 Respiratory 20 Rate Blood Pressure 130/78 (mmHg) O2 Sat by Pulse 95 Oximetry - Intake and Output Intake and Output: Intake & Output 05/22/19 05/23/19 05/24/19 05/25/19 11:59 11:59 11:59 11:59 Intake Total 2689 1451 Output Total 300 Balance 2689 1151 Weight 275 lb 11.2 oz Intake: IV Fluids 2616 1451 NS 616 1451 Medicated IV 73 OCTREATIDE 73 Oral 0 0 Output: Hopkins 300 Other: # Bowel Movements 0 0 # Voids 0 0 ADLs: Meal Record Start: 05/24/19 03: 35 Freq: DAILY@0900,1400,1800 Status: Active Protocol: Created 05/24/19 03:35 System (Rec: 05/24/19 03:35 System [id number]) Document 05/24/19 09:00 [id number] (Rec: 05/24/19 09:59 [id number] MED-C09) Document 05/24/19 18:00 [id number] (Rec: 05/24/19 22:05 [id number] MED-C05) Intake and Output Start: 05/23/19 20: 58 Freq: Status: Active Protocol: Created 05/23/19 20:58 System (Rec: 05/23/19 20:58 System [id number]) Intake and Output Start: 05/24/19 03: 35 Freq: DAILY@0600,1400,2200 Status: Active Protocol: Created 05/24/19 03:35 System (Rec: 05/24/19 03:35 System MED-C05) Document 05/24/19 05:46 [id number] (Rec: 05/24/19 05:46 [id number] MED-C11) Document 05/24/19 14:00 [id number] (Rec: 05/24/19 14:17 [id number] MED-C05) Document 05/24/19 22:00 [id number] (Rec: 05/24/19 22:10 [id number] MED-C05) Document 05/25/19 05:34 [id number] (Rec: 05/25/19 05:34 [id number] MED-C05) - Physical Exam General Physical Exam Comment: He has a liver flap, but is alert and oriented. Speech slightly slurred. General: No Cyanosis, No Anemia, No Jaundice, No Clubbing Lungs and Chest: Yes: Chest Expansion Full, Chest Expansion Symetrica, Percussion Note Resonant, Vessicular Breath Sounds. No: Crackles, Wheezes Heart Rate and Rhythm: Regular Additional Cardiovascular: Yes: Normal Heart Sounds, Pedal Edema - 1+. No: Heart Murmur Abdominal Exam: Yes: Distention, Soft, Bowel Sounds Present. No: Abdominal Mass , Abdominal Tenderness, Guarding, Rebound Tenderness Results - Results Lab Results: Laboratory Results - last 24 hr 05/24/19 05/24/19 05/24/19 02:14 13:45 13:45 Hgb 12.0 L Hct 36 L POC Glucose (mg/dL) Hemoglobin A1c 5.4 Prealbumin 5 L 05/24/19 05/24/19 05/24/19 13:50 17:07 18:07 Hgb 11.3 L Hct 32 L POC Glucose (mg/dL) 205 H 165 H Hemoglobin A1c Prealbumin 05/24/19 05/25/19 05/25/19 23:58 01:12 06:03 Hgb 11.1 L Hct 32 L POC Glucose (mg/dL) 161 H 141 H Hemoglobin A1c Prealbumin Assessment - Problem List Assessment: Patient Problems Alcohol withdrawal (Acute) Alcoholic cirrhosis of liver (Acute) Ascites (Acute) Gastritis, alcoholic (Acute) Gastrointestinal candidiasis (Acute) Hematemesis (Acute) Hyperammonemia (Acute) Malnutrition (Acute) Obesity (Acute) Portal hypertension (Acute) Pressure injury of right buttock, stage 2 (Acute) Alcoholic (Chronic) Anxiety disorder (Chronic) Ataxia (Chronic) Coronary artery disease (Chronic) Depression (Chronic) Type 2 diabetes mellitus (Chronic) Plan: Gastritis, alcoholic (Acute)Gastrointestinal candidiasis (Acute) Hematemesis ( Acute) Dr. Mane found acute gastritis, consistent with alcoholic etiology and likely candidal overgrowth. I have added to the bid protonix regimen a 7 day course of fluconazole 300 mg qdaily. This doesn't require hepatic dosing. I will start him on clear liquids today Portal hypertension (Acute)Hyperammonemia (Acute) Ascites (Acute) he has signs of hepatic encephalopathy, but he is alert and conversational Alcohol withdrawal (Acute) Alcoholic cirrhosis of liver (Acute)Alcoholic ( Chronic) He appears committed at the moment for inpatient detox and alcohol cessation. Pressure injury of right buttock, stage 2 (Acute) This is due to prolonged recumbency and poor nutrition. He will need to keep pressure off this area. Type 2 diabetes mellitus (Chronic) good control Malnutrition - he has chronic poor nutrition due to his alcoholism. His pre- albumin is very low - this may be partly a synthetic defect. Secondary diagnoses: Obesity (Acute) Anxiety disorder (Chronic) Ataxia (Chronic) Coronary artery disease (Chronic) Depression (Chronic) I discussed the above with the patient. He agrees to stop alcohol and go through detox in the hospital. He will need to start a diet slowly. He wants his Hopkins in situ another day.
[2019-05-25 09:00] LABS: Albumin 2.4 g/dL (3.2-5.2); Albumin/Globulin Ratio 0.8 (1-3); BUN/Creatinine Ratio 7.8 (8-20); Calcium 7.7 mg/dL (8.6-10.3); EGFR African American 153.8 (>60); EGFR Non-African American 127.1 (>60); Globulin 2.9 g/dL (2-4); Indirect Bilirubin 0.7 mg/dL (0.3-1.0); Potassium 3.5 mmol/L (3.5-5.0); Total Bilirubin 1.3 mg/dL (0.2-1.0); Total Protein 5.3 g/dL (6.4-8.9)
[2019-05-25] MEDS: Folic Acid TAB* 1 MG PO SCH (10:13)
[2019-05-25] MEDS: Thiamine TAB* 100 MG TAB PO SCH (10:14)
[2019-05-25] MEDS: Escitalopram * 10 MG TAB PO SCH (10:14)
[2019-05-25] MEDS: Multivitamins/Minerals TAB PO SCH (10:14)
[2019-05-25] MEDS: Atorvastatin* 20 MG TAB PO SCH (10:14)
[2019-05-25] MEDS: Fluconazole 150 MG TAB PO SCH (10:15)
[2019-05-25] MEDS: Octreotide Acetate* 500 MCG in NS 0.9% 100 ML* 100 ML IV SCH ×2 (12:19→22:32)
[2019-05-26] MEDS: NS 0.9% 1000 ML** 1,000 ML IV SCH (01:37)
[2019-05-26] MEDS: Insulin LISPRO* 1 UNITS UNIT SUBCUT SCH ×4 (01:54→18:47)
[2019-05-26] MEDS: cefTRIAXone(*) 1 GM in NS 0.9% 50 ML* 50 ML IVPB SCH (05:58)
--- NOTE | 2019-05-26 08:28 | PN ---
Subjective - Subjective Reason for Note: Progress Note History: He is doing well with the alcohol withdrawal and is not requiring any benzodiazepines. He has had no further nausea, vomiting, hemetemesis or abdominal pain. He is not able to transfer independently - this is his baseline. Both OT and PT in their assessment emphasized the need for skilled rehab to improve safety. He had a problem with his Hopkins catheter yesterday, this was withdrawn, but he had poor urine output. Active Problems: Active Problems Alcohol withdrawal (Acute) F10.239 Alcoholic cirrhosis of liver (Acute) K70.30 Ascites (Acute) R18.8 Gastritis, alcoholic (Acute) K29.20 Gastrointestinal candidiasis (Acute) B37.89 Hematemesis (Acute) K92.0 Hyperammonemia (Acute) E72.20 Malnutrition (Acute) E46 Obesity (Acute) E66.9 Portal hypertension (Acute) K76.6 Pressure injury of right buttock, stage 2 (Acute) L89.312 Urinary retention (Acute) R33.9 Alcoholic (Chronic) F10.20 Anxiety disorder (Chronic) F41.9 Ataxia (Chronic) R27.0 Coronary artery disease (Chronic) I25.10 Depression (Chronic) F32.9 Type 2 diabetes mellitus (Chronic) Current Medications: Current Medications Atorvastatin Calcium (Lipitor*) 20 mg PO DAILY [facility]; Protocol Last Admin: 05/25/19 10:14 Dose: 20 mg Clonazepam (Klonopin Tab(*)) 0.5 mg PO TID PRN PRN Reason: ANXIETY Dextrose (Dextrose 50% Vial 50 Ml*) 25 ml IV PUSH .FOR FS < 60 - SS PRN PRN Reason: FS < 60 Escitalopram Oxalate (Lexapro *) 10 mg PO DAILY [facility] Last Admin: 05/25/19 10:14 Dose: 10 mg Fluconazole (Diflucan 150 Mg Tab*) 300 mg PO DAILY [facility] Stop: 05/31/19 09:01 Last Admin: 05/25/19 10:15 Dose: 300 mg Folic Acid (Folvite Tab*) 1 mg PO DAILY [facility] Last Admin: 05/25/19 10:13 Dose: 1 mg Insulin Human Lispro (Humalog*) 0 units SUBCUT Q6HR [facility]; Protocol Last Admin: 05/26/19 07:31 Dose: 3 units Lactulose (Lactulose*) 30 ml PO TID [facility] Last Admin: 05/25/19 21:24 Dose: 30 ml Lorazepam (Ativan Inj*) 0 mg IV PUSH Q6H PRN; Protocol PRN Reason: AGITATION Miscellaneous (Ativan Pyxis Toro) 1 ea N/A .ATIVAN IV TORO PRN PRN Reason: PYXIS TORO Multivitamins/Minerals (Theragran/Minerals Tab*) 1 tab PO DAILY [facility] Last Admin: 05/25/19 10:14 Dose: 1 tab Thiamine HCl (Vitamin B-1 Tab*) 250 mg PO DAILY [facility] Last Admin: 05/25/19 10:14 Dose: 250 mg Home Medications: Home Medications Medication Instructions Recorded Confirmed Type metFORMIN* [Glucophage*] 500 mg PO QAM 03/11/13 05/23/19 History Aspirin EC TAB* [Ecotrin EC Low 81 mg PO DAILY 05/23/19 05/23/19 History Dose 81 MG*] Atenolol TAB* [Tenormin TAB* 25 MG] 25 mg PO DAILY 05/23/19 05/23/19 History Escitalopram * [Lexapro 10 mg (NF)] 10 mg PO DAILY 05/23/19 05/23/19 History Folic Acid TAB* [Folvite TAB*] 1 mg PO DAILY 05/23/19 05/23/19 History Lisinopril TAB* [Prinivil TAB*] 10 mg PO DAILY 05/23/19 05/23/19 History Multivitamins/Minerals TAB* 1 tab PO DAILY 05/23/19 05/23/19 History [Theragran/minerals TAB*] Rosuvastatin (NF) [Crestor (NF)] 10 mg PO DAILY 05/23/19 05/23/19 History Thiamine TAB* [Vitamin B-1 TAB*] 250 mg PO DAILY 05/23/19 05/23/19 History Ubidecarenone [Co Q-10] 200 mg PO DAILY 05/23/19 05/23/19 History clonazePAM TAB(*) [KlonoPIN TAB(*)] 0.5 mg PO TID PRN 05/23/19 05/23/19 History Allergies: Allergies Allergy/AdvReac Type Severity Reaction Status Date / Time No Known Allergies Allergy Verified 05/23/19 20:54 Objective - Vital Signs Vital Signs: Vital Signs 05/25/19 05/25/19 05/25/19 10:19 14:01 19:35 Temperature 98.0 F 98.6 F Pulse Rate 111 103 Respiratory 20 18 20 Rate Blood Pressure 124/85 129/74 (mmHg) O2 Sat by Pulse 96 98 Oximetry 05/25/19 05/25/19 05/25/19 19:50 20:00 22:44 Temperature 97.4 F 97.7 F Pulse Rate 108 99 Respiratory 20 18 Rate Blood Pressure 134/82 139/86 (mmHg) O2 Sat by Pulse 99 92 Oximetry 05/26/19 05/26/19 03:15 07:15 Temperature 97.9 F 97.5 F Pulse Rate 97 94 Respiratory 20 18 Rate Blood Pressure 133/86 119/83 (mmHg) O2 Sat by Pulse 93 95 Oximetry - Intake and Output Intake and Output: Intake & Output 05/23/19 05/24/19 05/25/19 05/26/19 11:59 11:59 11:59 11:59 Intake Total 2689 1571 4040 Output Total 300 180 Balance 2689 1271 3860 Weight 275 lb 11.2 oz Intake: IV Fluids 2616 1451 2760 NS 616 1451 2760 Medicated IV 73 OCTREATIDE 73 Oral 0 120 1280 Output: Urine 100 Hopkins 300 Straight Cath 80 Other: # Bowel Movements 0 1 1 Estimated Stool Amount Small Large # Voids 0 0 0 ADLs: Meal Record Start: 05/24/19 03: 35 Freq: DAILY@0900,1400,1800 Status: Active Protocol: Created 05/24/19 03:35 System (Rec: 05/24/19 03:35 System MED-C05) Document 05/24/19 09:00 [id number] (Rec: 05/24/19 09:59 [id number] MED-C09) Document 05/24/19 18:00 [id number] (Rec: 05/24/19 22:05 [id number] MED-C05) Document 05/25/19 09:00 [id number] (Rec: 05/25/19 11:01 [id number] MED-C15) Document 05/25/19 14:00 [id number] (Rec: 05/25/19 14:01 [id number] MED-C11) Document 05/25/19 18:00 [id number] (Rec: 05/25/19 18:06 [id number] MED-C09) Intake and Output Start: 05/23/19 20: 58 Freq: Status: Active Protocol: Created 05/23/19 20:58 System (Rec: 05/23/19 20:58 System [id number]) Intake and Output Start: 05/24/19 03: 35 Freq: DAILY@0600,1400,2200 Status: Active Protocol: Created 05/24/19 03:35 System (Rec: 05/24/19 03:35 System MED-C05) Document 05/24/19 05:46 [id number] (Rec: 05/24/19 05:46 [id number] MED-C11) Document 05/24/19 14:00 [id number] (Rec: 05/24/19 14:17 [id number] MED-C05) Document 05/24/19 22:00 [id number] (Rec: 05/24/19 22:10 [id number] MED-C05) Document 05/25/19 05:34 [id number] (Rec: 05/25/19 05:34 [id number] MED-C05) Document 05/25/19 14:00 [id number] (Rec: 05/25/19 15:13 [id number] MED-M28) Document 05/25/19 21:50 [id number] (Rec: 05/25/19 21:50 [id number] MED-C13) Document 05/26/19 04:19 [id number] (Rec: 05/26/19 04:19 [id number] TELE-M03) Document 05/26/19 05:28 [id number] (Rec: 05/26/19 05:28 [id number] MED-C09) - Physical Exam General Physical Exam Comment: improved tremor/flap General: No Cyanosis, No Anemia, No Jaundice, No Clubbing Lungs and Chest: Yes: Chest Expansion Full, Chest Expansion Symetrica, Percussion Note Resonant, Vessicular Breath Sounds. No: Crackles, Wheezes Heart Rate and Rhythm: Regular Additional Cardiovascular: Yes: Normal Heart Sounds, Pedal Edema - 1+. No: Heart Murmur Abdominal Exam: Yes: Distention, Soft, Bowel Sounds Present. No: Abdominal Tenderness Results - Results Lab Results: Laboratory Results - last 24 hr 05/25/19 05/25/19 05/25/19 08:15 08:15 08:38 WBC 8.2 RBC 3.15 L Hgb 11.1 L Hct 32 L MCV 101 H MCH 35 H MCHC 35 RDW 13 Plt Count 165 MPV 6.3 L Neut % (Auto) 73.3 Lymph % (Auto) 15.3 [place] % (Auto) 4.9 Eos % (Auto) 5.6 Baso % (Auto) 0.9 Absolute Neuts (auto) 6.0 Absolute Lymphs (auto) 1.3 Absolute Monos (auto) 0.4 Absolute Eos (auto) 0.5 Absolute Basos (auto) 0.1 Absolute Nucleated RBC 0.0 Nucleated RBC % 0.0 Sodium 136 D Potassium 3.5 Chloride 107 Carbon Dioxide 23 Anion Gap 6 BUN 5 L Creatinine 0.64 L Est GFR ( Amer) 153.8 Est GFR (Non-Af Amer) 127.1 BUN/Creatinine Ratio 7.8 L Glucose 134 H POC Glucose (mg/dL) 142 H Calcium 7.7 L Total Bilirubin 1.30 H Direct Bilirubin 0.60 H Indirect Bilirubin 0.7 AST 60 H ALT 28 Alkaline Phosphatase 126 H Total Protein 5.3 L Albumin 2.4 L Globulin 2.9 Albumin/Globulin Ratio 0.8 L 05/25/19 05/25/19 05/26/19 12:12 18:30 01:35 WBC RBC Hgb Hct MCV MCH MCHC RDW Plt Count MPV Neut % (Auto) Lymph % (Auto) [place] % (Auto) Eos % (Auto) Baso % (Auto) Absolute Neuts (auto) Absolute Lymphs (auto) Absolute Monos (auto) Absolute Eos (auto) Absolute Basos (auto) Absolute Nucleated RBC Nucleated RBC % Sodium Potassium Chloride Carbon Dioxide Anion Gap BUN Creatinine Est GFR ( Amer) Est GFR (Non-Af Amer) BUN/Creatinine Ratio Glucose POC Glucose (mg/dL) 165 H 152 H 170 H Calcium Total Bilirubin Direct Bilirubin Indirect Bilirubin AST ALT Alkaline Phosphatase Total Protein Albumin Globulin Albumin/Globulin Ratio 05/26/19 06:09 WBC RBC Hgb Hct MCV MCH MCHC RDW Plt Count MPV Neut % (Auto) Lymph % (Auto) [place] % (Auto) Eos % (Auto) Baso % (Auto) Absolute Neuts (auto) Absolute Lymphs (auto) Absolute Monos (auto) Absolute Eos (auto) Absolute Basos (auto) Absolute Nucleated RBC Nucleated RBC % Sodium Potassium Chloride Carbon Dioxide Anion Gap BUN Creatinine Est GFR ( Amer) Est GFR (Non-Af Amer) BUN/Creatinine Ratio Glucose POC Glucose (mg/dL) 162 H Calcium Total Bilirubin Direct Bilirubin Indirect Bilirubin AST ALT Alkaline Phosphatase Total Protein Albumin Globulin Albumin/Globulin Ratio Assessment - Problem List Assessment: Patient Problems Alcohol withdrawal (Acute) Alcoholic cirrhosis of liver (Acute) Ascites (Acute) Gastritis, alcoholic (Acute) Gastrointestinal candidiasis (Acute) Hematemesis (Acute) Hyperammonemia (Acute) Malnutrition (Acute) Obesity (Acute) Portal hypertension (Acute) Pressure injury of right buttock, stage 2 (Acute) Urinary retention (Acute) Alcoholic (Chronic) Anxiety disorder (Chronic) Ataxia (Chronic) Coronary artery disease (Chronic) Depression (Chronic) Type 2 diabetes mellitus (Chronic) Plan: Gastritis, alcoholic (Acute) Gastrointestinal candidiasis (Acute) Hematemesis ( Acute) He has had no further hematemesis, abdominal pain, nausea or vomiting. I will progress his diet. Alcohol withdrawal (Acute)Alcoholic (Chronic) He is doing well with the [facility] protocol Alcoholic cirrhosis of liver (Acute) Portal hypertension (Acute) Ascites ( Acute) Hyperammonemia (Acute) I will start him on a beta sreedhar and diuretic. Malnutrition (Acute) This is a major problem. I am concerned about this as an outpatient. May require meals on wheels. Pressure injury of right buttock, stage 2 (Acute) He sits all day at baseline and with poor nutrition he is at risk of a major decubitus. We will obtain a gel pad for his home chair Urinary retention (Acute) He describes urinary incontinence at baseline - this could be obstruction with overflow. The bladder scan appears not to be working due to his ascites. I will obtain a bladder US (post void), place a Hopkins and seek urology as an outpatient Obesity (Acute) secondary diagnosis Type 2 diabetes mellitus (Chronic) controlled Anxiety disorder (Chronic) Depression (Chronic) Declines psychiatric consult Ataxia (Chronic) This is secondary to alcoholism Coronary artery disease (Chronic) secondary diagnosis I discussed the above with the patient. He has a precarious home situation for discharge. He has declined skilled facility - I will continue to encourage this approach.
[2019-05-26] MEDS: Octreotide Acetate* 500 MCG in NS 0.9% 100 ML* 100 ML IV SCH (08:56)
[2019-05-26 09:10] LABS: Albumin 2.4 g/dL (3.2-5.2); Albumin/Globulin Ratio 0.8 (1-3); BUN/Creatinine Ratio 6.9 (8-20); Calcium 7.6 mg/dL (8.6-10.3); EGFR African American 172.3 (>60); EGFR Non-African American 142.4 (>60); Globulin 2.9 g/dL (2-4); Indirect Bilirubin 0.6 mg/dL (0.3-1.0); Potassium 3.1 mmol/L (3.5-5.0); Total Bilirubin 1.2 mg/dL (0.2-1.0); Total Protein 5.3 g/dL (6.4-8.9)
[2019-05-26] MEDS: Atorvastatin* 20 MG TAB PO SCH (10:09)
[2019-05-26] MEDS: Escitalopram * 10 MG TAB PO SCH (10:09)
[2019-05-26] MEDS: Fluconazole 150 MG TAB PO SCH (10:11)
[2019-05-26] MEDS: Folic Acid TAB* 1 MG PO SCH (10:13)
[2019-05-26] MEDS: Multivitamins/Minerals TAB PO SCH (10:14)
[2019-05-26] MEDS: Spironolactone TAB* 25 MG PO SCH (10:15)
[2019-05-26] MEDS: Thiamine TAB* 100 MG TAB PO SCH (10:16)
[2019-05-26] MEDS: Propranolol LA CAP* 60 MG PO SCH (12:08)
[2019-05-26] MEDS ORDERED: Furosemide IV* 10 MG/ML VIAL (40 MG) IV ONE (16:00)
[2019-05-26] MEDS ORDERED: KCL 20 MEQ/100 ML IVPREMIX* 20 MEQ/100 ML BAG IV ONE (16:00)
[2019-05-26] MEDS ORDERED: Ondansetron INJ* 2 MG/ML VIAL IV PRN (16:22)
[2019-05-27] MEDS: Insulin LISPRO* 1 UNITS UNIT SUBCUT SCH ×5 (00:21→23:51)
[2019-05-27 06:22] LABS: Albumin 2.3 g/dL (3.2-5.2); Calcium 7.6 mg/dL (8.6-10.3); Indirect Bilirubin 0.8 mg/dL (0.3-1.0); Potassium 3.1 mmol/L (3.5-5.0); Total Bilirubin 1.2 mg/dL (0.2-1.0)
[2019-05-27 06:28] LABS: Albumin/Globulin Ratio 0.8 (1-3); BUN/Creatinine Ratio 6.3 (8-20); EGFR African American 156.7 (>60); EGFR Non-African American 129.5 (>60); Globulin 2.9 g/dL (2-4); Total Protein 5.2 g/dL (6.4-8.9)
--- NOTE | 2019-05-27 07:55 | PN ---
Subjective - Subjective Reason for Note: Progress Note History: He did not tolerate a regular diet yesterday - he was nauseated and vomited. He dislikes lactulose. He continues to complain of gas in his abdomen. He has had no hematemesis and his abdomen is not painful, just distended. The US bladder showed he was not in urinary retention, the furosemide 40 mg iv did not produce a large diuresis. Active Problems: Active Problems Alcohol withdrawal (Acute) F10.239 Alcoholic cirrhosis of liver (Acute) K70.30 Ascites (Acute) R18.8 Gastritis, alcoholic (Acute) K29.20 Gastrointestinal candidiasis (Acute) B37.89 Hematemesis (Acute) K92.0 Hyperammonemia (Acute) E72.20 Malnutrition (Acute) E46 Obesity (Acute) E66.9 Portal hypertension (Acute) K76.6 Pressure injury of right buttock, stage 2 (Acute) L89.312 Urinary retention (Acute) R33.9 Alcoholic (Chronic) F10.20 Anxiety disorder (Chronic) F41.9 Ataxia (Chronic) R27.0 Coronary artery disease (Chronic) I25.10 Depression (Chronic) F32.9 Type 2 diabetes mellitus (Chronic) Current Medications: Current Medications Atorvastatin Calcium (Lipitor*) 20 mg PO DAILY [facility]; Protocol Last Admin: 05/26/19 10:09 Dose: 20 mg Clonazepam (Klonopin Tab(*)) 0.5 mg PO TID PRN PRN Reason: ANXIETY Dextrose (Dextrose 50% Vial 50 Ml*) 25 ml IV PUSH .FOR FS < 60 - SS PRN PRN Reason: FS < 60 Escitalopram Oxalate (Lexapro *) 10 mg PO DAILY [facility] Last Admin: 05/26/19 10:09 Dose: 10 mg Fluconazole (Diflucan 150 Mg Tab*) 300 mg PO DAILY [facility] Stop: 05/31/19 09:01 Last Admin: 05/26/19 10:11 Dose: 300 mg Folic Acid (Folvite Tab*) 1 mg PO DAILY [facility] Last Admin: 05/26/19 10:13 Dose: 1 mg Insulin Human Lispro (Humalog*) 0 units SUBCUT Q6HR [facility]; Protocol Last Admin: 05/27/19 06:31 Dose: 2 units Lactulose (Lactulose*) 30 ml PO TID [facility] Last Admin: 05/26/19 21:39 Dose: 30 ml Lorazepam (Ativan Inj*) 0 mg IV PUSH Q6H PRN; Protocol PRN Reason: AGITATION Miscellaneous (Ativan Pyxis Noonan) 1 ea N/A .ATIVAN IV NOONAN PRN PRN Reason: PYXIS NOONAN Multivitamins/Minerals (Theragran/Minerals Tab*) 1 tab PO DAILY [facility] Last Admin: 05/26/19 10:14 Dose: 1 tab Ondansetron HCl (Zofran Inj*) 4 mg IV Q6H PRN PRN Reason: NAUSEA Last Admin: 05/26/19 16:47 Dose: 4 mg Propranolol HCl (Inderal La Cap*) 60 mg PO DAILY [facility] Last Admin: 05/26/19 12:08 Dose: 60 mg Spironolactone (Aldactone Tab*) 25 mg PO DAILY [facility] Last Admin: 05/26/19 10:15 Dose: 25 mg Thiamine HCl (Vitamin B-1 Tab*) 250 mg PO DAILY [facility] Last Admin: 05/26/19 10:16 Dose: 250 mg Home Medications: Home Medications Medication Instructions Recorded Confirmed Type metFORMIN* [Glucophage*] 500 mg PO [facility] 03/11/13 05/23/19 History Aspirin EC TAB* [Ecotrin EC Low 81 mg PO DAILY 05/23/19 05/23/19 History Dose 81 MG*] Atenolol TAB* [Tenormin TAB* 25 MG] 25 mg PO DAILY 05/23/19 05/23/19 History Escitalopram * [Lexapro 10 mg (NF)] 10 mg PO DAILY 05/23/19 05/23/19 History Folic Acid TAB* [Folvite TAB*] 1 mg PO DAILY 05/23/19 05/23/19 History Lisinopril TAB* [Prinivil TAB*] 10 mg PO DAILY 05/23/19 05/23/19 History Multivitamins/Minerals TAB* 1 tab PO DAILY 05/23/19 05/23/19 History [Theragran/minerals TAB*] Rosuvastatin (NF) [Crestor (NF)] 10 mg PO DAILY 05/23/19 05/23/19 History Thiamine TAB* [Vitamin B-1 TAB*] 250 mg PO DAILY 05/23/19 05/23/19 History Ubidecarenone [Co Q-10] 200 mg PO DAILY 05/23/19 05/23/19 History clonazePAM TAB(*) [KlonoPIN TAB(*)] 0.5 mg PO TID PRN 05/23/19 05/23/19 History Allergies: Allergies Allergy/AdvReac Type Severity Reaction Status Date / Time No Known Allergies Allergy Verified 05/23/19 20:54 Objective - Vital Signs Vital Signs: Vital Signs 05/26/19 05/26/19 05/26/19 08:00 14:51 19:15 Temperature 98.1 F 97.6 F Pulse Rate 85 71 Respiratory 16 16 16 Rate Blood Pressure 124/87 138/88 (mmHg) O2 Sat by Pulse 97 97 Oximetry 05/26/19 05/27/19 05/27/19 20:00 00:11 03:30 Temperature 97.5 F Pulse Rate 76 67 Respiratory 16 18 20 Rate Blood Pressure 136/86 121/84 (mmHg) O2 Sat by Pulse 95 94 Oximetry - Intake and Output Intake and Output: Intake & Output 05/24/19 05/25/19 05/26/19 05/27/19 11:59 11:59 11:59 11:59 Intake Total 2689 1571 4240 997 Output Total 273 086 7575 Balance 2689 1271 4060 -803 Weight 275 lb 11.2 oz Intake: IV Fluids 2616 1451 2760 120 NS 616 1451 2760 120 IVPB 245 KCL 20meq 115 NS 130 Medicated IV 73 12 OCTREATIDE 73 12 Oral 0 120 1480 620 Output: Urine 100 800 Hopkins 300 200 Straight Cath 80 800 Other: # Bowel Movements 0 1 1 2 Estimated Stool Amount Small Large Large # Voids 0 0 0 ADLs: Meal Record Start: 05/24/19 03: 35 Freq: DAILY@0900,1400,1800 Status: Active Protocol: Created 05/24/19 03:35 System (Rec: 05/24/19 03:35 System MED-C05) Document 05/24/19 09:00 [id number] (Rec: 05/24/19 09:59 [id number] MED-C09) Document 05/24/19 18:00 [id number] (Rec: 05/24/19 22:05 [id number] MED-C05) Document 05/25/19 09:00 [id number] (Rec: 05/25/19 11:01 [id number] MED-C15) Document 05/25/19 14:00 [id number] (Rec: 05/25/19 14:01 [id number] MED-C11) Document 05/25/19 18:00 [id number] (Rec: 05/25/19 18:06 [id number] MED-C09) Document 05/26/19 09:00 [id number] (Rec: 05/26/19 09:07 [id number] MED-C11) Document 05/26/19 14:00 [id number] (Rec: 05/26/19 14:20 [id number] MED-C11) Document 05/26/19 18:00 [id number] (Rec: 05/26/19 21:17 [id number] MED-C09) Intake and Output Start: 05/23/19 20: 58 Freq: Status: Active Protocol: Created 05/23/19 20:58 System (Rec: 05/23/19 20:58 System EDRM-C11) Intake and Output Start: 05/24/19 03: 35 Freq: DAILY@0600,1400,2200 Status: Active Protocol: Created 05/24/19 03:35 System (Rec: 05/24/19 03:35 System MED-C05) Document 05/24/19 05:46 [id number] (Rec: 05/24/19 05:46 [id number] MED-C11) Document 05/24/19 14:00 [id number] (Rec: 05/24/19 14:17 [id number] MED-C05) Document 05/24/19 22:00 [id number] (Rec: 05/24/19 22:10 [id number] MED-C05) Document 05/25/19 05:34 [id number] (Rec: 05/25/19 05:34 [id number] MED-C05) Document 05/25/19 14:00 [id number] (Rec: 05/25/19 15:13 [id number] MED-M28) Document 05/25/19 21:50 [id number] (Rec: 05/25/19 21:50 [id number] MED-C13) Document 05/26/19 04:19 [id number] (Rec: 05/26/19 04:19 [id number] [facility]-M03) Document 05/26/19 05:28 [id number] (Rec: 05/26/19 05:28 [id number] MED-C09) Document 05/26/19 14:00 [id number] (Rec: 05/26/19 14:20 [id number] MED-C11) Document 05/26/19 21:24 [id number] (Rec: 05/26/19 21:25 [id number] MED-C09) Document 05/27/19 06:00 [id number] (Rec: 05/27/19 06:21 [id number] MED-C13) - Physical Exam General Physical Exam Comment: He is warm and well perfused and in no acute distress General: No Cyanosis, No Anemia, No Jaundice, No Clubbing Lungs and Chest: Yes: Chest Expansion Full, Chest Expansion Symetrica, Percussion Note Resonant, Vessicular Breath Sounds. No: Crackles, Wheezes Heart Rate and Rhythm: Regular Additional Cardiovascular: Yes: Normal Heart Sounds, Pedal Edema. No: Heart Murmur Abdominal Exam: Yes: Distention, Bowel Sounds Present. No: Soft, Abdominal Mass , Abdominal Tenderness, Guarding, Rebound Tenderness Results - Results Lab Results: Laboratory Results - last 24 hr 05/24/19 05/26/19 05/26/19 13:45 08:42 08:42 Sodium 134 L Potassium 3.1 L Chloride 107 Carbon Dioxide 22 Anion Gap 5 BUN 4 L Creatinine 0.58 L Est GFR ( Amer) 172.3 Est GFR (Non-Af Amer) 142.4 BUN/Creatinine Ratio 6.9 L Glucose 131 H POC Glucose (mg/dL) Calcium 7.6 L Total Bilirubin 1.20 H Direct Bilirubin 0.60 H Indirect Bilirubin 0.6 AST 57 H ALT 26 Alkaline Phosphatase 124 H Ammonia 62 H Total Protein 5.3 L Albumin 2.4 L Globulin 2.9 Albumin/Globulin Ratio 0.8 L Yvette albicans Ag <0.35 05/26/19 05/26/19 05/27/19 12:12 17:59 00:10 Sodium Potassium Chloride Carbon Dioxide Anion Gap BUN Creatinine Est GFR ( Amer) Est GFR (Non-Af Amer) BUN/Creatinine Ratio Glucose POC Glucose (mg/dL) 186 H 193 H 190 H Calcium Total Bilirubin Direct Bilirubin Indirect Bilirubin AST ALT Alkaline Phosphatase Ammonia Total Protein Albumin Globulin Albumin/Globulin Ratio Yvette albicans Ag 05/27/19 05/27/19 05/27/19 05:59 05:59 06:15 Sodium 135 Potassium 3.1 L Chloride 107 Carbon Dioxide 22 Anion Gap 6 BUN 4 L Creatinine 0.63 L Est GFR ( Amer) 156.7 Est GFR (Non-Af Amer) 129.5 BUN/Creatinine Ratio 6.3 L Glucose 152 H POC Glucose (mg/dL) 143 H Calcium 7.6 L Total Bilirubin 1.20 H Direct Bilirubin 0.40 H Indirect Bilirubin 0.8 AST 45 H ALT 22 Alkaline Phosphatase 116 H Ammonia 72 H Total Protein 5.2 L Albumin 2.3 L Globulin 2.9 Albumin/Globulin Ratio 0.8 L Yvette albicans Ag Radiology Results: Patient Name: CATHY GAUTHIER Medical Record#: [id number] Ordering Physician: Gumaro Villegas MD Acct.#: [id number] : 1960 Age: 59 Sex: M Location: [address] [place] [address] MEDICAL Exam Date: 05/26/19 0800 ADM Status: ADM IN Order Information: US URINARY BLADDER Accession Number: [id number] CPT: 87329 HISTORY: urinary retention - post void please COMPARISONS: None relevant available at the time of dictation. TECHNIQUE: Multiple transverse and longitudinal ultrasound images were obtained of the bladder using grayscale and color Doppler imaging. FINDINGS: The study is limited by patient body habitus. BLADDER: The bladder is smooth in contour. Bilateral ureteral jets are identified. The prevoid bladder volume is 105 ml. The patient was unable to void spontaneously.. AORTA AND IVC: No images are submitted of the vasculature. RETROPERITONEUM: Unremarkable. PROSTATE: The prostate gland measures approximately 2.8 x 1.9 x 3 cm for a volume of 8 mL. OTHER: There is a moderate amount ascites. IMPRESSION: 1. THE BLADDER VOLUME IS 105 ML. THE PATIENT IS UNABLE TO VOID SPONTANEOUSLY. 2. ASCITES. <Electronically signed by Aurelio Ferrer MD in OV> 05/26/19 1139 Dictated By: Aurelio Ferrer MD Dictated Date/Time: 05/26/19 1136 Transcribed Date/Time: 05/26/19 1136 Copy to: Patient Name: CATHY GAUTHIER Medical Record#: [id number] Ordering Physician: Gumaro Villegas MD Acct.#: [id number] : 1960 Age: 59 Sex: M Location: [address] [place] [address] MEDICAL Exam Date: 05/26/19827 ADM Status: ADM IN Order Information: CHEST AP OR PORT Accession Number: [id number] CPT: 76743 INDICATION: Dyspnea COMPARISON: None. TECHNIQUE: Single AP portable view of the chest was obtained. FINDINGS: Image quality is compromised due to the relative inferiority of a portable chest x-ray. The heart and mediastinum exhibit normal size and contour. The lungs are grossly clear. There is no evidence of a large pleural effusion. Visualized bones are normal for the patient's age. IMPRESSION: No radiographic evidence for acute cardiopulmonary abnormality on this portable chest x-ray. <Electronically signed by Vladimir Tamayo MD in [place]> 05/26/19 1121 Dictated By: Vladimir Tamayo MD Dictated Date/Time: 05/26/19 1007 Transcribed Date/Time: 05/26/19 1007 Copy to: CC:Gumaro Villegas MD; Ramirez Montgomery MD; Irvin Del Rosario MD Imaging - [facility] [address] [address] ph [phone]) ph ([phone]) ph ([phone]) 1 of 1 Assessment - Problem List Assessment: Patient Problems Alcohol withdrawal (Acute) Alcoholic cirrhosis of liver (Acute) Ascites (Acute) Gastritis, alcoholic (Acute) Gastrointestinal candidiasis (Acute) Hematemesis (Acute) Hyperammonemia (Acute) Malnutrition (Acute) Obesity (Acute) Portal hypertension (Acute) Pressure injury of right buttock, stage 2 (Acute) Urinary retention (Acute) Alcoholic (Chronic) Anxiety disorder (Chronic) Ataxia (Chronic) Coronary artery disease (Chronic) Depression (Chronic) Type 2 diabetes mellitus (Chronic) Plan: Gastritis, alcoholic (Acute) Gastrointestinal candidiasis (Acute) Hematemesis ( Acute) He has not tolerated a more normal diet - he was vomiting from this. I will have a registered dietitian consult - he requires a portal hypertension diet. Alcoholic cirrhosis of liver (Acute) Ascites (Acute) Hyperammonemia (Acute) Portal hypertension (Acute) - He had no evidence of esophageal varices - he has marked ascites and peripheral edema: I have started him on spironolactone, furosemide and propranolol - Poor synthetic function: His INR was 1.82, albumin 2.3. This contributes to a low oncotic pressure and together with the portal hypertension, more ascites - Poor ability to detoxify liver metabolized drugs - He has elevated ammonia levels and he hates lactulose (not unusual). He is having bowel movements. The dose should be higher, but I think he would refuse this. He is alert and oriented. Alcoholic (Chronic)/Alcohol withdrawal (Acute) He is having no signs of acute alcohol withdrawal Urinary retention (Acute) This is resolved Hypokalemia - I will continue to correct. Malnutrition (Acute) Obesity (Acute) This is longstanding. I will consult with RD Pressure injury of right buttock, stage 2 (Acute) According to the RN, this is unchanged -for an air mattress Anxiety disorder (Chronic) Depression (Chronic) he is depressed being in the hospital and asks to see his dog Ataxia (Chronic) He is unable to mobilize Coronary artery disease (Chronic) stable Type 2 diabetes mellitus (Chronic) controlled. I discussed the above with the patient. I gave the Wikipedia page on portal hypertension for him to read. I explained he needs to understand about his condition to be able to manage this at home. He requires further acute hospital bed while we introduce diuretic therapy, manage his electrolyte disturbances and introduce an appropriate diet.
[2019-05-27] MEDS ORDERED: KCL 20 MEQ/100 ML IVPREMIX* 20 MEQ/100 ML BAG IV ONE (08:07)
[2019-05-27] MEDS: Multivitamins/Minerals TAB PO SCH (09:46)
[2019-05-27] MEDS: Potassium Chlor TAB* 20 MEQ TAB.ER PO SCH ×2 (09:46→21:32)
[2019-05-27] MEDS: Atorvastatin* 20 MG TAB PO SCH (09:46)
[2019-05-27] MEDS: Thiamine TAB* 100 MG TAB PO SCH (09:47)
[2019-05-27] MEDS: Escitalopram * 10 MG TAB PO SCH (09:48)
[2019-05-27] MEDS: Propranolol LA CAP* 60 MG PO SCH (09:48)
[2019-05-27] MEDS: Fluconazole 150 MG TAB PO SCH (09:49)
[2019-05-27] MEDS: Folic Acid TAB* 1 MG PO SCH (09:49)
[2019-05-27] MEDS: Spironolactone TAB* 25 MG PO SCH (09:54)
[2019-05-27] MEDS: Furosemide TAB* 40 MG PO SCH (17:55)
[2019-05-28 05:21] LABS: Albumin 2.3 g/dL (3.2-5.2); Albumin/Globulin Ratio 0.9 (1-3); BUN/Creatinine Ratio 4.5 (8-20); Calcium 7.6 mg/dL (8.6-10.3); EGFR African American 145.9 (>60); EGFR Non-African American 120.6 (>60); Globulin 2.7 g/dL (2-4); Indirect Bilirubin 0.8 mg/dL (0.3-1.0); Total Bilirubin 1.2 mg/dL (0.2-1.0)
[2019-05-28] MEDS: Insulin LISPRO* 1 UNITS UNIT SUBCUT SCH ×2 (06:19→11:56)
[2019-05-28] MEDS: Multivitamins/Minerals TAB PO SCH ×2 (07:49→08:03)
[2019-05-28] MEDS: Propranolol LA CAP* 60 MG PO SCH (07:49)
[2019-05-28] MEDS: Folic Acid TAB* 1 MG PO SCH (07:49)
[2019-05-28] MEDS: Potassium Chlor TAB* 20 MEQ TAB.ER PO SCH (07:50)
[2019-05-28] MEDS: Furosemide TAB* 40 MG PO SCH (07:50)
[2019-05-28] MEDS: Fluconazole 150 MG TAB PO SCH (07:50)
[2019-05-28] MEDS: Spironolactone TAB* 25 MG PO SCH (07:50)
[2019-05-28] MEDS: Thiamine TAB* 100 MG TAB PO SCH (07:50)
[2019-05-28] MEDS: Escitalopram * 10 MG TAB PO SCH (07:50)
[2019-05-28] MEDS: Atorvastatin* 20 MG TAB PO SCH (07:50)
[2019-05-28 08:00] VITALS: BP 117/71
--- NOTE | 2019-05-28 09:53 | PN ---
Subjective - Subjective Reason for Note: Discharge Note History: Mr Donovan wants to go home today and insists on this. He has started on new treatment for his gastritis and for his portal hypertension and ascites. He has tolerated this. He is in no pain or distress. He tolerated ice cream yesterday, but nothing else aside from glucerna. He has completed the [facility] protocol Active Problems: Active Problems Alcohol withdrawal (Acute) F10.239 Alcoholic cirrhosis of liver (Acute) K70.30 Ascites (Acute) R18.8 Gastritis, alcoholic (Acute) K29.20 Gastrointestinal candidiasis (Acute) B37.89 Hematemesis (Acute) K92.0 Hyperammonemia (Acute) E72.20 Malnutrition (Acute) E46 Obesity (Acute) E66.9 Portal hypertension (Acute) K76.6 Pressure injury of right buttock, stage 2 (Acute) L89.312 Urinary retention (Acute) R33.9 Alcoholic (Chronic) F10.20 Anxiety disorder (Chronic) F41.9 Ataxia (Chronic) R27.0 Coronary artery disease (Chronic) I25.10 Depression (Chronic) F32.9 Type 2 diabetes mellitus (Chronic) Current Medications: Current Medications Atorvastatin Calcium (Lipitor*) 20 mg PO DAILY [facility]; Protocol Last Admin: 05/28/19 07:50 Dose: 20 mg Clonazepam (Klonopin Tab(*)) 0.5 mg PO TID PRN PRN Reason: ANXIETY Dextrose (Dextrose 50% Vial 50 Ml*) 25 ml IV PUSH .FOR FS < 60 - SS PRN PRN Reason: FS < 60 Escitalopram Oxalate (Lexapro *) 10 mg PO DAILY [facility] Last Admin: 05/28/19 07:50 Dose: 10 mg Fluconazole (Diflucan 150 Mg Tab*) 300 mg PO DAILY [facility] Stop: 05/31/19 09:01 Last Admin: 05/28/19 07:50 Dose: 300 mg Folic Acid (Folvite Tab*) 1 mg PO DAILY [facility] Last Admin: 05/28/19 07:49 Dose: 1 mg Furosemide (Lasix Tab*) 40 mg PO 0800,1700 [facility] Last Admin: 05/28/19 07:50 Dose: 40 mg Insulin Human Lispro (Humalog*) 0 units SUBCUT Q6HR [facility]; Protocol Last Admin: 05/28/19 06:19 Dose: 2 units Lactulose (Lactulose*) 30 ml PO TID [facility] Last Admin: 05/28/19 07:49 Dose: 30 ml Lorazepam (Ativan Inj*) 0 mg IV PUSH Q6H PRN; Protocol PRN Reason: AGITATION Miscellaneous (Ativan Pyxis Toro) 1 ea N/A .ATIVAN IV TORO PRN PRN Reason: PYXIS TORO Multivitamins/Minerals (Theragran/Minerals Tab*) 1 tab PO DAILY [facility] Last Admin: 05/28/19 08:03 Dose: Not Given Ondansetron HCl (Zofran Inj*) 4 mg IV Q6H PRN PRN Reason: NAUSEA Last Admin: 05/26/19 16:47 Dose: 4 mg Potassium Chloride (Klor Con Er Tab*) 20 meq PO BID [facility] Last Admin: 05/28/19 07:50 Dose: 20 meq Propranolol HCl (Inderal La Cap*) 60 mg PO DAILY [facility] Last Admin: 05/28/19 07:49 Dose: 60 mg Spironolactone (Aldactone Tab*) 25 mg PO DAILY [facility] Last Admin: 05/28/19 07:50 Dose: 25 mg Thiamine HCl (Vitamin B-1 Tab*) 250 mg PO DAILY [facility] Last Admin: 05/28/19 07:50 Dose: 250 mg Home Medications: Home Medications Medication Instructions Recorded Confirmed Type metFORMIN* [Glucophage*] 500 mg PO QAM 03/11/13 05/23/19 History Aspirin EC TAB* [Ecotrin EC Low 81 mg PO DAILY 05/23/19 05/23/19 History Dose 81 MG*] Atenolol TAB* [Tenormin TAB* 25 MG] 25 mg PO DAILY 05/23/19 05/23/19 History Escitalopram * [Lexapro 10 mg (NF)] 10 mg PO DAILY 05/23/19 05/23/19 History Folic Acid TAB* [Folvite TAB*] 1 mg PO DAILY 05/23/19 05/23/19 History Lisinopril TAB* [Prinivil TAB*] 10 mg PO DAILY 05/23/19 05/23/19 History Multivitamins/Minerals TAB* 1 tab PO DAILY 05/23/19 05/23/19 History [Theragran/minerals TAB*] Rosuvastatin (NF) [Crestor (NF)] 10 mg PO DAILY 05/23/19 05/23/19 History Thiamine TAB* [Vitamin B-1 TAB*] 250 mg PO DAILY 05/23/19 05/23/19 History Ubidecarenone [Co Q-10] 200 mg PO DAILY 05/23/19 05/23/19 History clonazePAM TAB(*) [KlonoPIN TAB(*)] 0.5 mg PO TID PRN 05/23/19 05/23/19 History Allergies: Allergies Allergy/AdvReac Type Severity Reaction Status Date / Time No Known Allergies Allergy Verified 05/23/19 20:54 Objective - Vital Signs Vital Signs: Vital Signs 05/27/19 05/27/19 05/28/19 19:32 21:00 03:26 Temperature 97.7 F 97.1 F Pulse Rate 64 58 Respiratory 16 16 17 Rate Blood Pressure 116/78 110/72 (mmHg) O2 Sat by Pulse 94 98 Oximetry 05/28/19 05/28/19 07:15 08:00 Temperature 97.3 F Pulse Rate 62 Respiratory 12 20 Rate Blood Pressure 117/71 (mmHg) O2 Sat by Pulse 99 Oximetry - Intake and Output Intake and Output: Intake & Output 05/25/19 05/26/19 05/27/19 05/28/19 11:59 11:59 11:59 11:59 Intake Total 1571 4240 1237 1160 Output Total 900 431 7832 1100 Balance 1271 4060 -563 60 Intake: IV Fluids 1451 2760 120 NS 1451 2760 120 IVPB 245 200 KCL 20meq 115 100 NS 130 100 Medicated IV 12 OCTREATIDE 12 Oral 120 1480 860 960 Output: Urine 168 231 5727 Hopkins 300 200 Straight Cath 80 800 Other: Estimated Void Medium # Bowel Movements 1 1 2 1 Estimated Stool Amount Small Large Large Medium # Voids 0 0 1 ADLs: Meal Record Start: 05/24/19 03: 35 Freq: DAILY@0900,1400,1800 Status: Active Protocol: Created 05/24/19 03:35 System (Rec: 05/24/19 03:35 System MED-C05) Document 05/24/19 09:00 [id number] (Rec: 05/24/19 09:59 [id number] MED-C09) Document 05/24/19 18:00 [id number] (Rec: 05/24/19 22:05 [id number] MED-C05) Document 05/25/19 09:00 [id number] (Rec: 05/25/19 11:01 [id number] MED-C15) Document 05/25/19 14:00 [id number] (Rec: 05/25/19 14:01 [id number] MED-C11) Document 05/25/19 18:00 [id number] (Rec: 05/25/19 18:06 [id number] MED-C09) Document 05/26/19 09:00 [id number] (Rec: 05/26/19 09:07 [id number] MED-C11) Document 05/26/19 14:00 [id number] (Rec: 05/26/19 14:20 [id number] MED-C11) Document 05/26/19 18:00 [id number] (Rec: 05/26/19 21:17 ELK1819 MED-C09) Document 05/27/19 09:00 [id number] (Rec: 05/27/19 11:47 [id number] MED-C11) Document 05/27/19 14:00 [id number] (Rec: 05/27/19 15:50 [id number] MED-C11) Document 05/27/19 18:00 [id number] (Rec: 05/27/19 18:46 [id number] MED-C11) Intake and Output Start: 05/23/19 20: 58 Freq: Status: Active Protocol: Created 05/23/19 20:58 System (Rec: 05/23/19 20:58 System EDRM-C11) Intake and Output Start: 05/24/19 03: 35 Freq: DAILY@0600,1400,2200 Status: Active Protocol: Created 05/24/19 03:35 System (Rec: 05/24/19 03:35 System MED-C05) Document 05/24/19 05:46 [id number] (Rec: 05/24/19 05:46 [id number] MED-C11) Document 05/24/19 14:00 [id number] (Rec: 05/24/19 14:17 [id number] MED-C05) Document 05/24/19 22:00 [id number] (Rec: 05/24/19 22:10 [id number] MED-C05) Document 05/25/19 05:34 [id number] (Rec: 05/25/19 05:34 [id number] MED-C05) Document 05/25/19 14:00 [id number] (Rec: 05/25/19 15:13 [id number] MED-M28) Document 05/25/19 21:50 [id number] (Rec: 05/25/19 21:50 [id number] MED-C13) Document 05/26/19 04:19 [id number] (Rec: 05/26/19 04:19 JBO0517 TELE-M03) Document 05/26/19 05:28 IMD2759 (Rec: 05/26/19 05:28 [id number] MED-C09) Document 05/26/19 14:00 [id number] (Rec: 05/26/19 14:20 [id number] MED-C11) Document 05/26/19 21:24 [id number] (Rec: 05/26/19 21:25 [id number] MED-C09) Document 05/27/19 06:00 KWF2076 (Rec: 05/27/19 06:21 JVQ2039 MED-C13) Document 05/27/19 14:00 [id number] (Rec: 05/27/19 15:50 [id number] MED-C11) Document 05/27/19 21:33 [id number] (Rec: 05/27/19 21:33 [id number] MED-M09) Document 05/27/19 21:50 [id number] (Rec: 05/27/19 21:51 [id number] MED-C11) Document 05/28/19 04:22 [id number] (Rec: 05/28/19 04:22 [id number] MED-C11) - Physical Exam General Physical Exam Comment: He is sitting in a chair. He has a slight hepatic flap. General: No Cyanosis, Yes Anemia, No Jaundice, No Clubbing Lungs and Chest: Yes: Chest Expansion Full, Chest Expansion Symetrica, Percussion Note Resonant, Vessicular Breath Sounds. No: Crackles, Wheezes Heart Rate and Rhythm: Regular Additional Cardiovascular: Yes: [place] Beat not Displaced, Pedal Edema. No: Heart Murmur Abdominal Exam: Yes: Distention, Soft, Bowel Sounds Present. No: Abdominal Tenderness, Guarding, Rebound Tenderness Results - Results Lab Results: Laboratory Results - last 24 hr 11/12/19 11/15/19 11/15/19 13:45 11:44 17:36 Sodium Potassium Chloride Carbon Dioxide Anion Gap BUN Creatinine Est GFR ( Amer) Est GFR (Non-Af Amer) BUN/Creatinine Ratio Glucose POC Glucose (mg/dL) 181 H 152 H Calcium Total Bilirubin Direct Bilirubin Indirect Bilirubin AST ALT Alkaline Phosphatase Total Protein Albumin Globulin Albumin/Globulin Ratio Whole Bld Vitamin B1 184 H 05/27/19 05/27/19 05/28/19 20:31 23:44 04:46 Sodium 135 Potassium 3.0 L Chloride 105 Carbon Dioxide 23 Anion Gap 7 BUN 3 L Creatinine 0.67 Est GFR ( Amer) 145.9 Est GFR (Non-Af Amer) 120.6 BUN/Creatinine Ratio 4.5 L Glucose 131 H POC Glucose (mg/dL) 178 H 175 H Calcium 7.6 L Total Bilirubin 1.20 H Direct Bilirubin 0.40 H Indirect Bilirubin 0.8 AST 41 H ALT 20 Alkaline Phosphatase 101 Total Protein 5.0 L Albumin 2.3 L Globulin 2.7 Albumin/Globulin Ratio 0.9 L Whole Bld Vitamin B1 Assessment - Problem List Assessment: Patient Problems Alcohol withdrawal (Acute) Alcoholic cirrhosis of liver (Acute) Ascites (Acute) Gastritis, alcoholic (Acute) Gastrointestinal candidiasis (Acute) Hematemesis (Acute) Hyperammonemia (Acute) Malnutrition (Acute) Obesity (Acute) Portal hypertension (Acute) Pressure injury of right buttock, stage 2 (Acute) Urinary retention (Acute) Alcoholic (Chronic) Anxiety disorder (Chronic) Ataxia (Chronic) Coronary artery disease (Chronic) Depression (Chronic) Type 2 diabetes mellitus (Chronic) Plan: Gastritis, alcoholic (Acute) Gastrointestinal candidiasis (Acute)Hematemesis ( Acute) he will complete his course of fluconazole and progress his diet as tolerated - he is tolerating glucerna Alcoholic (Chronic) Alcohol withdrawal (Acute) He has completed the [facility] protocol. I have told him that he will kill himself if he continues to drink alcohol and that he should completely abstain from alcohol Alcoholic cirrhosis of liver (AcuteAscites (Acute) Hyperammonemia (Acute) Malnutrition (Acute) Portal hypertension (Acute) He is taking furosemide, spironolactone and propranolol. He has hypokalemia. Pressure injury of right buttock, stage 2 (Acute) I advised him to avoid sitting in the same position for long periods. In addition, he will start using a gel cushion Urinary retention (Acute) He is voiding with [place] catheter Secondary diagnoses Obesity (Acute) Anxiety disorder (Chronic) Ataxia (Chronic) Coronary artery disease (Chronic) Depression (Chronic) Type 2 diabetes mellitus (Chronic) I discussed the above with the patient and suggested he makes a transition of care visit with my office next week. He tells me he has transferred his care to another physician.
--- NOTE | 2019-05-28 11:38 | DS ---
DISCHARGE SUMMARY: ADDENDUM: DISCHARGE MEDICATIONS: 1. Lactulose 30 mL twice daily. 2. Omeprazole 40 mg twice daily. 3. Fluconazole 150 mg, 300 mg daily for a total of 1 week. 4. Furosemide 40 mg daily. 5. Potassium chloride 20 mEq twice daily. 6. Spironolactone 25 mg daily. 7. Multivitamin 1 a day. 8. Escitalopram 10 mg daily. 9. Rosuvastatin 10 mg daily. 10. Ubidecarenone 200 mg each day. 11. Clonazepam 0.5 mg t.i.d. as needed for anxiety. 12. Thiamine 250 mg daily. 13. He is also to start propranolol LA 60 mg daily. He is to stop the following drugs: 1. Metformin. 2. Lisinopril. 3. Aspirin. 4. Atenolol. SPECIAL MEASURES: He is to have a transition of care visit with his new primary care physician within 1 week. He is to check his blood sugars twice daily and contact his new primary care physician if the blood sugars are above 200, they have not been in the hospital without any medications, just with diet alone. He may need to be started on new medication that is consistent with his liver failure. He needs to have electrolytes drawn within a week as he is currently taking 2 different diuretics and has been hypokalemic in the hospital. His domestic situation may need reviewing. He is at risk of restarting alcohol consumption. [id number]/[facility] #: [id number] [facility]ALKristian
--- NOTE | 2019-05-28 13:00 | DS ---
CONTINUATION ADDENDUM NOW INCLUDED ON THIS REPORT DISCHARGE SUMMARY: DATE OF ADMISSION: 05/23/19 DATE OF DISCHARGE: 05/28/19 DISCHARGE DIAGNOSES: 1. Hematemesis. 2. Alcoholic gastritis, likely Yvette gastritis. 3. Alcoholic cirrhosis with portal hypertension. 4. Ascites but no varices. 5. Elevated ammonia level. 6. Active alcoholic with discontinuation syndrome, completed [place] protocol. 7. Pressure injury, right buttock, stage II, small. 8. Urinary retention. SECONDARY DIAGNOSES: 1. Obesity. 2. Anxiety disorder. 3. Ataxia. 4. Coronary artery disease. 5. Depression. 6. Type 2 diabetes mellitus. CONDITION AT DISCHARGE: Stable. DISPOSITION: Home. HISTORY: His presentation is documented by Dr. Irvin Del Rosario in his admitting history and physical. In short, this is a patient with chronic unremitting alcoholism, type 2 diabetes mellitus, neuropathy, alcoholic cirrhosis and portal hypertension, coronary artery disease with a stented LAD 2009. He developed bilious vomiting with coffee-ground emesis, vomited about 20 times, felt bloated, went to the emergency room. He had some 7/10 epigastric pain. He stated he last drank alcohol 2 days prior to admission and had been cutting back for several months. PHYSICAL EXAMINATION: Vital Signs: Temperature 98.9, pulse rate 126, respirations 11 to 28, oxygen saturation 89% to 100% on room air, blood pressure range 99/70 to 128/93. He was anicteric. Abdomen was soft and distended. INITIAL INVESTIGATIONS: White count 12.2, hemoglobin 11.8, hematocrit 33, platelets 193. INR 1.82. Sodium 133, potassium 3.9, chloride 99, bicarbonate 23, BUN 5, creatinine 0.65. Total bili 1.4, AST 66, ALT 33, ALP 142. Albumin 2.5. Lactic acid 1.8. Hemoglobin 10.9, hematocrit 31. EKG: Sinus tachycardia, poor R-wave progression. INITIAL IMPRESSION: Alcohol cirrhosis, hematemesis, upper gastrointestinal bleed. He was started on IV infusion of Protonix. His INR was noted. There were concerns about esophageal varices. He was placed on octreotide infusion. He was placed on a [facility] protocol and given appropriate vitamins. CONSULTATIONS: Dr. Shyam Mane. On 05/24/19, he performed an EGD. His impression, diffuse esophagitis, reflux; caustic, fungal, viral; suggested empiric antifungal, antipeptic treatment. Evidence of portal hypertensive gastropathy. Consultation from Carli Cruz NP, for wound care. She photographed his buttocks, which showed a small subcentimeter right-sided stage II and some erythema on both sides, clearly pressure injury, suggested repositioning, added a prealbumin to his labs which was low. He has poor nutrition. INVESTIGATIONS: Laboratory at presentation: White count was elevated at 12.2 with 79% neutrophils. Chemistry: He had an elevated ammonia levels at presentation 118, this came down to between 62 and 72 with lactulose. His BNP was 63. His Yvette albicans antigen was less than 3.5. IMAGING: Liver ultrasound on 05/24/19, ascites was noted, biliary sludge and the mildly thickened gallbladder. On 05/26/19, bladder ultrasound was checked after voiding without Hopkins and he had 105 mL in his bladder. On 05/26/19, chest x-ray showed no active cardiopulmonary disease. HOSPITAL COURSE: 1. Esophagitis. We treated him with proton pump inhibitor and fluconazole for presumed candidal esophagitis. He had no varices. He had no further hemorrhage or hematemesis. He did not tolerate food when this was reintroduced and had to remain on Glucerna. 2. He had urinary retention when he came into the hospital but this was ended when he started to improve by removing his Hopkins catheter and showing normal bladder scan postvoid. 3. Advanced alcoholic cirrhosis with portal hypertension, ascites, elevated ammonia, liver flap, elevated INR. I counseled him to absolutely abstain from alcohol in the future. I gave him materials to read about alcoholic cirrhosis and portal hypertension. I started him on spironolactone, propranolol, and furosemide for his ascites and peripheral edema. I note that he has a significant synthetic defect with low albumin and low prealbumin. 4. Alcoholism. He tolerated the [facility] protocol and did not have DTs or other major problems and was able to stop benzodiazepines several days prior to discharge. On the day of discharge, he is refusing to stay 1 more day in the hospital to stabilize his regimen for his portal hypertension. He understands the risks and wants to go home. He is hemodynamically stable. No evidence of further bleeding. No evidence of DTs. He denies any pain. REVIEW OF SYSTEMS: Cardiovascular system: No chest pain, shortness of breath, or palpitations. Respiratory system: No productive cough or hemoptysis. Gastrointestinal system: Poor appetite. Unable to tolerate food. Does tolerate Glucerna. He is having bowel movements with lactulose. He is urinating, has no headache, no seizures or neurological symptoms. PHYSICAL EXAMINATION ON THE DAY OF DISCHARGE: Vital Signs: Temperature 97.3, pulse 62, oxygen saturation 99% on room air, blood pressure 117/71. Cardiovascular system: His pulse is regular, normal character and volume. Venous pressure not elevated. Heart sounds were normal. No murmurs. He has 1+ pedal edema. Respiratory system: Chest expansion, sudden symmetrical percussion note resonant. Breath sounds vesicular. No crackles or wheezes. Abdominal examination: He has distention. Soft. No masses, tenderness or organomegaly. Nervous system: He is alert and oriented. He has a mild hepatic flap, otherwise he has signs of his ataxia. He is otherwise intact. INVESTIGATIONS ON THE DAY OF DISCHARGE: Chemistry: Abnormal; potassium 3.0, glucose 131, calcium 7.6. Total bilirubin 1.2, direct bilirubin 0.4, AST 41. Total protein 5, albumin 2.3. ASSESSMENT AND PLAN: 1. Alcoholic esophagitis and gastropathy, likely candidiasis. He is tolerating the fluconazole and will continue to take proton pump inhibitor as an outpatient. 2. Alcoholism. I have emphatically told him to discontinue alcohol. He completed the [facility] protocol. I have told him that if he drinks anymore, he will . 3. Alcoholic cirrhosis, hyperammonemia, malnutrition, portal hypertension, liver synthetic defect, ascites, peripheral edema. I have started him on furosemide, spironolactone, propranolol, lactulose regimen. He currently has hypokalemia. We will need to supplement his potassium and he needs to have electrolytes followed up frequently. 4. Pressure injury, right buttock, stage II. He is sedentary. I have told him to avoid sitting in the same position for long periods. He is getting a gel cushion for his home chair. 5. Urinary retention. He is now voiding normally. SECONDARY DIAGNOSES: 1. Obesity. 2. Anxiety. 3. Ataxia. 4. Coronary artery disease. 5. Depression. 6. Type 2 diabetes. These are all stable. I suggested that he should make a transition of care visit with his new primary care physician within the next week as he informed me he is transferring his care to another physician. CONTINUATION ADDENDUM: DISCHARGE MEDICATIONS: 1. Lactulose 30 mL twice daily. 2. Omeprazole 40 mg twice daily. 3. Fluconazole 150 mg, 300 mg daily for a total of 1 week. 4. Furosemide 40 mg daily. 5. Potassium chloride 20 mEq twice daily. 6. Spironolactone 25 mg daily. 7. Multivitamin 1 a day. 8. Escitalopram 10 mg daily. 9. Rosuvastatin 10 mg daily. 10. Ubidecarenone 200 mg each day. 11. Clonazepam 0.5 mg t.i.d. as needed for anxiety. 12. Thiamine 250 mg daily. 13. He is also to start propranolol LA 60 mg daily. He is to stop the following drugs: 1. Metformin. 2. Lisinopril. 3. Aspirin. 4. Atenolol. SPECIAL MEASURES: He is to have a transition of care visit with his new primary care physician within 1 week. He is to check his blood sugars twice daily and contact his new primary care physician if the blood sugars are above 200, they have not been in the hospital without any medications, just with diet alone. He may need to be started on new medication that is consistent with his liver failure. He needs to have electrolytes drawn within a week as he is currently taking 2 different diuretics and has been hypokalemic in the hospital. His domestic situation may need reviewing. He is at risk of restarting alcohol consumption. [id number]/[facility] #: [id number]/[facility] #: [id number] TIFFANY
== END 2019-05-28 14:27 | disposition home or self-care (01) | DRG 253 ==
LOC: ED 20:46 → MED 05-24 02:43
PROVIDERS: ADMIT Internal Medicine; ATTEND Internal Medicine
PROC: 0DJ08ZZ Inspection of Upper Intestinal Tract, Via Natural or Artificial Opening Endoscopic (ICD-10-PCS; principal; 2019-05-24)
DX: K92.0 Hematemesis (principal); G93.40 Encephalopathy, unspecified; E72.20 Disorder of urea cycle metabolism, unspecified; E46 Unspecified protein-calorie malnutrition; I50.30 Unspecified diastolic (congestive) heart failure; B37.81 Candidal esophagitis; K76.6 Portal hypertension; F10.239 Alcohol dependence with withdrawal, unspecified; L89.312 Pressure ulcer of right buttock, stage 2; I11.0 Hypertensive heart disease with heart failure; E11.40 Type 2 diabetes mellitus with diabetic neuropathy, unspecified; K70.0 Alcoholic fatty liver; E66.01 Morbid (severe) obesity due to excess calories; K70.31 Alcoholic cirrhosis of liver with ascites; K29.20 Alcoholic gastritis without bleeding; R33.9 Retention of urine, unspecified; F10.20 Alcohol dependence, uncomplicated; F41.9 Anxiety disorder, unspecified; R27.0 Ataxia, unspecified; F32.9 Major depressive disorder, single episode, unspecified; I25.10 Atherosclerotic heart disease of native coronary artery without angina pectoris; K31.89 Other diseases of stomach and duodenum; K44.9 Diaphragmatic hernia without obstruction or gangrene; L30.9 Dermatitis, unspecified; K21.0 Gastro-esophageal reflux disease with esophagitis; E87.6 Hypokalemia; E78.5 Hyperlipidemia, unspecified; Z68.35 Body mass index [BMI] 35.0-35.9, adult; Z95.5 Presence of coronary angioplasty implant and graft; Z79.84 Long term (current) use of oral hypoglycemic drugs; Z79.82 Long term (current) use of aspirin; Z79.899 Other long term (current) drug therapy; Z82.49 Family history of ischemic heart disease and other diseases of the circulatory system; Z87.891 Personal history of nicotine dependence; Z74.01 Bed confinement status
CPT/HCPCS: 36415; 71045; 76705; 76857; 80048; 80053; 80076; 82140; 82247; 83036; 83605; 83880; 84134; 84425; 85014; 85018; 85025; 85610; 85730; 86003; 86850; 86900; 86901; 87102; 87252; 88112; 93005; 96374; 97530; 99156; 99157; 99284; A9270-GY; G8978-GP-CN; G8979-GP-CL; G8987-GO-CL; G8988-GO-CK; J0696; J1940; J2250; J2354; J2405; J3010; J3480

== ENCOUNTER 2020-02-05 02:25 | Inpatient (IN) ==
[2020-02-05 07:41] LABS: ABS Basophils 0.1 10^3/ul (0-0.2); ABS Eosinophils 0.1 10^3/ul (0-0.6); ABS Lymphocytes 2.9 10^3/ul (1.0-4.8); ABS Monocytes 1.2 10^3/ul (0-0.8); ABS Neutrophils 6.6 10^3/ul (1.5-7.7); Eosinophil % 1.1 %; Hematocrit 37 % (42-52); Lymphocyte % 26.6 %; Mean Corpuscular HGB Conc 37 g/dL (31-36); Mean Corpuscular Hemoglobin 33 pg (27-31); Mean Corpuscular Volume 89 fL (80-94); Mean Platelet Volume 7.5 fL (7.4-10.4); Nucleated Red Blood Cells % 0.1; Platelet Count 176 10^3/uL (150-450); Red Blood Count 4.22 10^6 /uL (4.18-5.48); Red Cell Distribution Width 13 % (10-15); White Blood Count 10.9 10^3/uL (3.5-10.8)
[2020-02-05 07:53] LABS: ALT 19 U/L (7-52); AST 26 U/L (13-39); Albumin 4.3 g/dL (3.2-5.2); Albumin/Globulin Ratio 1.3 (1-3); Alkaline Phosphatase 93 U/L (34-104); Anion Gap 16 mmol/L (2-11); BUN/Creatinine Ratio 11.5 (8-20); Blood Urea Nitrogen 10 mg/dL (6-24); CO2 Carbon Dioxide 15 mmol/L (22-32); Calcium 9.4 mg/dL (8.6-10.3); Chloride 94 mmol/L (101-111); EGFR African American 107.9 (>60); EGFR Non-African American 89.2 (>60); Globulin 3.2 g/dL (2-4); Glucose 208 mg/dL (70-100); Potassium 4.1 mmol/L (3.5-5.0); Sodium 125 mmol/L (135-145); Total Protein 7.5 g/dL (6.4-8.9)
[2020-02-05 08:25] LABS: Acetaminophen < 15 mcg/mL; Alcohol, S < 10 mg/dL (<10); Salicylate < 2.50 mg/dL (<30)
[2020-02-05 08:39] LABS: TSH Ultra Thyroid Stim Horm 4.26 mcIU/mL (0.34-5.60)
[2020-02-05] MEDS ORDERED: Thiamine 100 MG/ML 2 ml VIAL 100 MG, Folic Acid 1 MG, Multiple Vitamin IV ADULT 10 ML i... IV ONE (12:26)
[2020-02-05 18:07] LABS: BUN/Creatinine Ratio 12.3 (8-20); Calcium 9.2 mg/dL (8.6-10.3); EGFR African American 117.2 (>60); EGFR Non-African American 96.9 (>60); Potassium 3.7 mmol/L (3.5-5.0)
[2020-02-05] MEDS: Heparin 5000 UNITS/ML 1 mL VIAL SUBCUT SCH (20:53)
[2020-02-05] MEDS ORDERED: LIDOCAINE TOPICAL SCH (21:00)
[2020-02-06] MEDS: Heparin 5000 UNITS/ML 1 mL VIAL SUBCUT SCH ×3 (05:51→20:27)
[2020-02-06] MEDS ORDERED: ALOGLIPTIN 25 MG PO SCH (09:00)
[2020-02-06 11:41] LABS: ABS Eosinophils 0.1 10^3/ul (0-0.6); ABS Lymphocytes 2.4 10^3/ul (1.0-4.8); ABS Monocytes 0.8 10^3/ul (0-0.8); ABS Neutrophils 5.2 10^3/ul (1.5-7.7); Eosinophil % 0.8 %; Hematocrit 38 % (42-52); Hemoglobin 13.9 g/dL (14.0-18.0); Lymphocyte % 27.9 %; Mean Corpuscular HGB Conc 36 g/dL (31-36); Mean Corpuscular Hemoglobin 33 pg (27-31); Mean Corpuscular Volume 90 fL (80-94); Mean Platelet Volume 7.5 fL (7.4-10.4); Nucleated Red Blood Cells % 0.1; Platelet Count 173 10^3/uL (150-450); Red Blood Count 4.26 10^6 /uL (4.18-5.48); Red Cell Distribution Width 13 % (10-15); White Blood Count 8.5 10^3/uL (3.5-10.8)
[2020-02-06 11:59] LABS: Calcium 9.2 mg/dL (8.6-10.3); EGFR African American 124.3 (>60); EGFR Non-African American 102.7 (>60); Magnesium 1.6 mg/dL (1.9-2.7); Potassium 3.6 mmol/L (3.5-5.0)
[2020-02-06] MEDS: Aspirin EC 81 mg TAB.EC (enteric coated) PO SCH (12:03)
[2020-02-06] MEDS: Insulin GLARGINE 100 un/ml 10 ml VIAL SUBCUT SCH (12:03)
[2020-02-06] MEDS: Multivitamins/Minerals TAB PO SCH (12:04)
[2020-02-06] MEDS ORDERED: Magnesium Sulfate IV 3 GM in NS 0.9% 100 ml BAG 100 ML IVPB ONE (14:18)
[2020-02-06] MEDS ORDERED: Polyethylene Glycol 3350 17 GM PACKET PO PRN (14:40)
[2020-02-06] MEDS ORDERED: Dextran 70/Hypromellose Tears Eye Drops 15 ml BTL (for Artificials Tears) BOTH EYES PRN (15:38)
[2020-02-06 18:15] LABS: Urine Appearance Clear; Urine Bilirubin Negative (Negative); Urine Blood Negative (Negative); Urine Color Yellow; Urine Glucose 3+(>=500 mg/dL) (Negative); Urine Ketones 1+ (Negative); Urine Nitrite Negative (Negative); Urine Protein Negative (Negative); Urine Specific Gravity 1.011 (1.010-1.030); Urine Urobilinogen Negative (Negative)
[2020-02-06 18:40] LABS: Urine Benzodiazepine Screen None Detected (None Detect); Urine Cannabinoids Screen Presumptive Positive (None Detect); Urine Opiates Screen None Detected (None Detect)
[2020-02-07] MEDS: Heparin 5000 UNITS/ML 1 mL VIAL SUBCUT SCH ×2 (05:23→15:20)
[2020-02-07 08:14] LABS: BUN/Creatinine Ratio 11.8 (8-20); EGFR African American 126.2 (>60); EGFR Non-African American 104.3 (>60); Magnesium 1.9 mg/dL (1.9-2.7); Potassium 3.6 mmol/L (3.5-5.0)
[2020-02-07 09:03] LABS: ABS Basophils 0.4 10^3/ul (0-0.2); ABS Eosinophils 0.2 10^3/ul (0-0.6); ABS Lymphocytes 2.6 10^3/ul (1.0-4.8); ABS Monocytes 0.8 10^3/ul (0-0.8); ABS Neutrophils 4.2 10^3/ul (1.5-7.7); Eosinophil % 2.5 %; Hematocrit 37 % (42-52); Hemoglobin 13.4 g/dL (14.0-18.0); Lymphocyte % 31.3 %; Mean Corpuscular HGB Conc 36 g/dL (31-36); Mean Corpuscular Hemoglobin 33 pg (27-31); Mean Corpuscular Volume 90 fL (80-94); Mean Platelet Volume 7.7 fL (7.4-10.4); Nucleated Red Blood Cells % 0.1; Platelet Count 171 10^3/uL (150-450); Red Cell Distribution Width 13 % (10-15); White Blood Count 8.2 10^3/uL (3.5-10.8)
[2020-02-07] MEDS: Insulin GLARGINE 100 un/ml 10 ml VIAL SUBCUT SCH (09:04)
[2020-02-07] MEDS: Multivitamins/Minerals TAB PO SCH (09:07)
[2020-02-07] MEDS: Aspirin EC 81 mg TAB.EC (enteric coated) PO SCH (09:08)
[2020-02-07 13:14] VITALS: BP 106/78
== END 2020-02-07 16:00 | disposition home health service (06) | DRG 861 ==
LOC: MED 02:25 → ED 02:25 → MED 20:02
PROVIDERS: ADMIT Internal Medicine; ATTEND Internal Medicine